=== PATIENT | female | born 1975 | race Caucasian/White ===

== ENCOUNTER 2020-02-23 01:44 | Emergency (ER) | payer OTHER, SELFPAY ==
[2020-02-23 01:44] VITALS: BP 150/88; PULSE 107; RESP 18; O2SAT 97
--- NOTE | 2020-02-23 01:51 | ED.GENADULT ---
HPI - General Adult General Chief complaint: Extremity Injury, Upper Stated complaint: arm pain Time Seen by Provider: 02/23/20 01:46 Source: patient Mode of arrival: EMS Limitations: no limitations History of Present Illness HPI narrative: Patient is a 44-year-old female brought in by EMS after complaining of bilateral hand tingling that started after being pulled over by the police. Patient admits to drinking 2-3 drinks tonight but that was hours ago . Patient states that she has a history of bulging cervical disc and she would occasionally get tingling of her hands. Patient denies any chest pain, shortness of breath, abdominal pain, nausea, vomiting, fever or chills. Patient denies any weakness, numbness, speech or visual disturbance. Patient states that she usually gets a shot of steroids and helps with her hand tingling. Related Data Home Medications Medication Instructions Recorded Confirmed No Home Medications 02/23/20 Allergies Allergy/AdvReac Type Severity Reaction Status Date / Time Penicillins Allergy Mild Hives Unverified 02/23/20 02:00 ampicillin Allergy Hives Verified 02/23/20 02:00 Review of Systems Review of Systems: All systems reviewed & are unremarkable except as noted in HPI and below Constitutional: Constitutional: Denies body ache(s), Denies chills, Denies excessive sweating, Denies fatigue, Denies fever(s), Denies headache(s), Denies lethargy, Denies malaise, Denies weakness and Denies weight loss Eyes: Eyes: Denies blurry vision, Denies change in vision and Denies loss of vision ENT: Denies dizziness, Denies ear discharge, Denies headache(s), Denies lip swelling, Denies epistaxis, Denies nasal congestion, Denies neck pain, Denies throat swelling and Denies tongue swelling Cardiovascular: Cardiovascular: Denies chest pain, Denies chest pain at rest, Denies chest pain with activity, Denies diaphoresis, Denies rapid heart rate, Denies edema, Denies irregular heart rhythm, Denies lightheadedness, Denies palpitations, Denies dyspnea and Denies dyspnea on exertion Respiratory: Respiratory: Denies chest congestion, Denies cough, Denies hemoptysis, Denies dyspnea and Denies dyspnea on exertion Gastrointestinal: Gastrointestinal: Denies abdominal pain, Denies melena, Denies hematochezia, Denies diarrhea, Denies nausea, Denies vomiting and Denies hematemesis Musculoskeletal: Musculoskeletal: Denies abnormal gait, Denies deformity, Denies joint swelling, Denies limited range of motion, Denies neck pain and Denies numbness Neurologic: Denies Abnormal speech present, Denies abnormal gait, Denies confusion, Denies dizziness, Denies headache(s), Denies focal weakness, Denies loss of vision, Denies numbness, Denies Other visual disturbances, Denies Sensory deficit (Neuro) and Denies weakness Psychiatric: Psychiatric: Denies confusion, Denies depression, Denies auditory hallucinations, Denies homicidal ideation and Denies suicidal ideation Endocrine: Endocrine: Denies cold intolerance, Denies excessive sweating, Denies fatigue, Denies heat intolerance and Denies palpitations Hematologic/Lymphatic: Hematologic/Lymphatic: Denies easy bleeding and Denies easy bruising Allergic/Immunologic: Allergic/Immunologic: Denies lip swelling, Denies throat swelling and Denies tongue swelling PMFSH Social History Social History Gender identity (if verbalized by the patient): Female Sexual Orientation (if Verbalized by the Patient): Straight or Heterosexual Exam Const: General: cooperative, healthy appearing, comfortable, no acute distress, well developed, alert and awake; No confusion Orientation/consciousness: oriented to person, oriented to place, oriented to time, patient oriented x3 and No confusion Limitations: no limitations HENMT: Head: normal to inspection, normocephalic and atraumatic Ears: hearing grossly normal bilaterally, TM normal on the right and TM normal on the left General nose exam: Normal exte
--- NOTE | 2020-02-23 01:53 | PC.NURSE ---
per ems report We were called out by the police department for someone they had pulled over. per the police office once pulled over they were told pt had severe arm and neck pain and burning. pt was at her friends house assisting with a tv being hung and was on her way home when stopped. Upon receiving ems report pt got agitated and verbalized that she did not appreciate insinuations being made about her. States I didnt have them call 911 because i was getting arrested. Pt did verbalized to erp dr simmons that she did have 3 sips of a twisted tea about 3 hours ago and that the can was still in her car.
[2020-02-23] MEDS: methylPREDNISolone SOD SUCC 125 MG VIAL 60 MG IM (02:12)
--- NOTE | 2020-02-23 02:27 | PC.NURSE ---
pt refusing to sign forms for treatment for registration. pt states i know that i don't have to sign them .
[2020-02-23 02:33] VITALS: BP 135/90; PULSE 97; RESP 18; O2SAT 97
== END 2020-02-23 02:47 | disposition home or self-care (01) ==
PROVIDERS: Emergency Provider Emergency Medicine; Referring Provider Internal Medicine
DX: M54.12 Radiculopathy, cervical region (principal)
CPT/HCPCS: 96372; 99283; J2930

== ENCOUNTER 2023-08-05 09:43 | Emergency (ER) | payer OTHER, SELFPAY ==
[2023-08-05 09:43] VITALS: BP 99/67; PULSE 73; RESP 20; TEMP 36.9; O2SAT 100
[2023-08-05 09:45] VITALS: BP 99/67; PULSE 101; RESP 18; TEMP 36.4; O2SAT 100
--- NOTE | 2023-08-05 09:48 | ED.SKABFB ---
HPI - Skin/Abscess/Foreign Bdy General Stated complaint: skin infection Time Seen by Provider: 08/05/23 09:47 History of Present Illness HPI narrative: Pt presents with abscess to upper back for 5 days. Pt says was unsure if spider bite. Pt denies fever or chills. Pt says tried to squeeze it but it hurt too bad. No known history of abscesses or MRSA infections. Related Data Allergies Allergy/AdvReac Type Severity Reaction Status Date / Time Penicillins Allergy Mild Hives Verified 02/23/20 02:11 ampicillin Allergy Hives Verified 02/23/20 02:00 Review of Systems Review of Systems: All systems reviewed & are unremarkable except as noted in HPI and below PMFSH Social History Social History Gender identity (if verbalized by the patient): Female Sexual Orientation (if Verbalized by the Patient): Straight or Heterosexual Exam Const: General: healthy appearing and no acute distress Nutritional Appearance: well nourished Orientation/consciousness: patient oriented x3 Limitations: no limitations Eyes: EOM: EOMs intact bilaterally Resp: Effort & Inspection: normal respiratory effort Auscultation: clear to auscultation bilaterally Cardio: Rate: regular rate Rhythm: regular rhythm Skin: Other: abscess upper back between shoulder blades Neuro: General: patient oriented x3, moves all extremities, no meningeal signs and no focal motor deficits Speech: normal speech Extrem: General: normal to inspection and no clubbing, cyanosis or edema Psych: Mental Status: mental status grossly normal Affect: Anxious affect present Attitude: cooperative Procedures Abscess I/D back: Date of Incision: 08/05/23 Time of Incision: 09:55 Local Anesthetic: lidocaine 1% Technique: incised with #11 blade Amount of fluid expressed (mL): 7 I&D Results: Pus and Blood Complications: pain and bleeding Abcess I&D Additional Comments: abscess incised with #11 blade, pus expressed but pt did not tolerate much squeezing or breaking up loculations with curved hemostats. Got out what I could. Gave ativan as well with some relief but did not tolerated much squeezing on abscess. MDM - Skin/Abscess/Foreign Bdy Differential Diagnosis Differential diagnosis: Likely abscess of skin or subcutaneous tissue and cellulitis Discharge Plan Discharge Clinical Impression: Abscess Patient Disposition: Home, Self-Care Condition: Improved Instructions: Antibiotic Form, Abscess (ED) Prescriptions: New sulfamethoxazole-trimethoprim [Bactrim DS] 800-160 mg tablet 2 tablet PO Q12H Qty: 40 0RF hydrocodone-acetaminophen 5-325 mg tablet 1 tablet PO Q6H PRN (Reason: pain) Qty: 10 0RF sulfamethoxazole-trimethoprim [Bactrim DS] 800-160 mg tablet 2 tablet PO Q12H Qty: 40 0RF hydrocodone-acetaminophen 5-325 mg tablet 1 tablet PO Q6H PRN (Reason: pain) Qty: 10 0RF No Action methylprednisolone [Medrol (Grady)] 4 mg tablets,dose pack See Rx Instructions .ROUTE .COMPLEX Qty: 21 0RF Rx Instructions: orally per package directions Follow-up/Referrals: Elgin Maza DO [Physician] - UNKNOWN,DOCTOR [Primary Care Provider] -
[2023-08-05] MEDS: LIDOCAINE HCL 1% LOCAL INJ 10 ML VIAL INFILTRATE (09:59)
[2023-08-05] MEDS: TETANUS,DIPHTHERIA,AC PERTUSSIS ADULT 0.5 ML (ADACEL) (09:59)
[2023-08-05] MEDS: LORazepam (*CRX) 1 MG TABLET PO (10:08)
[2023-08-05 10:30] VITALS: BP 138/84; PULSE 71; RESP 20; TEMP 36.9; O2SAT 97
== END 2023-08-05 10:30 | disposition home or self-care (01) ==
PROVIDERS: Emergency Provider Emergency Medicine
DX: L02.212 Cutaneous abscess of back [any part, except buttock and flank] (principal); Z23 Encounter for immunization
CPT/HCPCS: 10060; 90471; 90715; 99283; A9270

== ENCOUNTER 2023-08-16 19:53 | Emergency (ER) | payer OTHER, SELFPAY ==
[2023-08-16] VITALS (7 sets, daily range): BP systolic 118–140; BP diastolic 66–88; PULSE 78–91; RESP 16–18; TEMP 37–37.4; O2SAT 96–100
--- NOTE | ~2023-08-16 | XR_ITS ---
XR chest 2V Ordering provider: Conner Nice MD History: 48 years Female with . COUGH. FEVER. . Comparison: January 26, 2015 FINDINGS: MEDIASTINUM: The cardiac silhouette is not enlarged. LUNGS: No effusion or pneumothorax. Prominent markings in the lower lobes more on the left side. OTHER: No free air under the diaphragm. IMPRESSION: Prominent markings in the left lower lobe. No definite pneumonia seen. Reviewed, dictated and finalized at location A.
--- NOTE | 2023-08-16 20:00 | PC.NURSE ---
2000: Administered Covid PCR test & sent to lab
--- NOTE | 2023-08-16 20:05 | PC.NURSE ---
area that was lanced 1 week ago on her back is scabbed over. no redness or drainage noted. Denies pain to site
--- NOTE | 2023-08-16 20:17 | ED.FEVER ---
HPI - Fever General Chief Complaint: Fever Stated Complaint: lower abdominal pain Source: patient Mode of arrival: ambulatory Limitations: no limitations History of Present Illness HPI Narrative: patient is a 48-year-old female with a 1 day history of a cough, headache, abdominal pain and fever. She has associated muscle aches and pains. MD elicited complaint: fever and malaise Onset (ago): day(s) (1) Exacerbating factors: nothing Relieving factors: nothing Associated symptoms: chills, rigors, myalgias, headache and sinus pain ( Frontal bilateral) Treatments prior to arrival fever: none Related Data Allergies Allergy/AdvReac Type Severity Reaction Status Date / Time Penicillins Allergy Mild Hives Verified 02/23/20 02:11 ampicillin Allergy Hives Verified 02/23/20 02:00 Review of Systems Review of Systems: All systems reviewed & are unremarkable except as noted in HPI and below Constitutional: Constitutional: Reports no additional constitutional complaints Eyes: Eyes: Reports no additional eye complaints ENT: Reports system reviewed and no additional complaints, except as documented Cardiovascular: Cardiovascular: Reports no additional cardiovascular complaints Respiratory: Respiratory: Reports no additional respiratory complaints Gastrointestinal: Gastrointestinal: Reports no additional gastrointestinal complaints Genitourinary: Genitourinary: Reports no additional female genitourinary complaints Musculoskeletal: Musculoskeletal: Reports no additional musculoskeletal complaints Integumentary/Breasts: Skin/Breast: Reports system reviewed and no additional complaints, except as docu Neurologic: Reports system reviewed and no additional complaints, except as documented Psychiatric: Psychiatric: Reports no additional psychiatric complaints Endocrine: Endocrine: Reports no additional endocrine complaints Hematologic/Lymphatic: Hematologic/Lymphatic: Reports no additional hematologic/lymphatic complaints Allergic/Immunologic: Allergic/Immunologic: Reports no additional allergic/immunologic complaints PMFSH Social History Social History Gender identity (if verbalized by the patient): Female Sexual Orientation (if Verbalized by the Patient): Straight or Heterosexual Exam Const: General: ill appearing Nutritional Appearance: well nourished Orientation/consciousness: patient oriented x3 HENMT: Head: normal to inspection Ears: external ears normal Face/Nose/Sinus: Normal external nose present Eyes: Conjunctivae: conjunctivae normal Pupils: Equal, round and reactive pupils present EOM: EOMs intact bilaterally Neck: Neck: normal visual inspection Chest: Chest palpation & inspection: normal inspection of the chest Resp: Effort & Inspection: normal respiratory effort and not labored Auscultation: clear to auscultation bilaterally Cardio: Rate: regular rate Rhythm: regular rhythm Heart sounds: no murmurs GI: Inspection: non-distended GI Palp: Yes Soft to palpation and No Tenderness to palpation present (GI) Auscultation: normal bowel sounds : General: Yes bladder normal to palpation Back/Spine/Pelvis: Back: no CVA tenderness Skin: General skin exam: normal color Rashes: no rashes Wounds: no wounds Neuro: General: patient oriented x3 Cranial nerves: Yes Nystagmus not present Speech: normal speech Extrem: General: normal to inspection Psych: Appearance: grossly normal Mental Status: mental status grossly normal Affect: normal affect Course Vital Signs Vital signs: Vital Signs Temperature 37.0 C 08/16/23 19:54 Pulse Rate 91 08/16/23 19:54 Respiratory Rate 16 08/16/23 19:54 Blood Pressure 140/79 08/16/23 19:54 Pulse Oximetry 97 08/16/23 19:54 Oxygen Delivery Room Air 08/16/23 19:54 Temperature 37.4 C 08/16/23 22:14 Pulse Rate 80 08/16/23 21:23 Respiratory Rate 18 08/16/23 21:23 Blood Pre
[2023-08-16 20:37] LABS: SARS-CoV-2 RNA PCR Negative (Negative)
[2023-08-16 20:42] LABS: Influenza A QL RT-PCR Negative (Negative); Influenza B QL RT-PCR Negative (Negative); RSV RNA, RT-PCR Negative (Negative)
--- NOTE | 2023-08-16 20:47 | PC.NURSE ---
notified patient that covid/flu was negative. resting on stretcher. call light in reach
--- NOTE | 2023-08-16 21:22 | PC.NURSE ---
patient returned to room from xray
--- NOTE | 2023-08-16 21:22 | PC.NURSE ---
lab at the bedside
--- NOTE | 2023-08-16 21:25 | PC.NURSE ---
patient was given a urine and cup and told where the bathroom was. encouraged patient to go to bathroom and give sample.
--- NOTE | 2023-08-16 21:27 | PC.NURSE ---
patient ambulating to the bathroom
[2023-08-16 21:29] LABS: Basophils Absolute Auto 0.04 K/mm3 (0.00-0.10); Basophils Percent Auto 0.7 % (0.0-1.0); Eosinophils Absolute Auto 0.04 K/mm3 (0.02-0.50); Eosinophils Percent Auto 0.7 % (1.0-6.0); Hematocrit 45.3 % (35.0-49.0); Hemoglobin 15.1 g/dL (12.0-15.0); Immature Granulocyte Absolute 0.03 K/mm3 (0.00-0.00); Immature Granulocyte Percent A 0.5 % (0.0-0.0); Lymphocytes Absolute Auto 1.83 K/mm3 (1.10-4.50); Lymphocytes Percent Auto 31.3 % (18.0-42.0); Mean Corpuscular HGB Conc 33.3 g/dL (32-36); Mean Corpuscular Hemoglobin 29.7 pg (27.0-31.0); Mean Corpuscular Volume 89.2 fL (78.0-102.0); Mean Platelet Volume 9.1 fl (9.2-11.8); Monocytes Absolute Auto 0.46 K/mm3 (0.10-0.90); Monocytes Percent Auto 7.9 % (2.0-11.0); Neutrophils Absolute Auto 3.44 K/mm3 (1.70-7.20); Neutrophils Percent Auto 58.9 % (50.0-70.0); Platelet Count Result 268 K/mm3 (150-420); Red Blood Count 5.08 M/mm3 (4.20-5.40); Red Cell Distribution Width 12.2 % (11.6-14.4); White Blood Count 5.8 K/mm3 (4.8-10.8)
--- NOTE | 2023-08-16 21:33 | PC.NURSE ---
urine walked down to lab by Kandace villeda
[2023-08-16 21:35] LABS: Appearance Urine Clear (Clear); Bilirubin Urine Negative (Negative); Blood Urine Trace-intact (Negative); Color Urine Yellow (Yellow); Glucose Urine UA Negative (Negative); Ketones Urine Negative (Negative); Leukocyte Esterase Ur Negative LEU/UL (Negative); Nitrate Urine Negative (Negative); Protein Urine Negative (Negative); pH Urine 7.5 (5.0-8.0)
[2023-08-16 21:40] LABS: Add Urine Microscopic? YES; Bacteria Urine Trace /hpf; RBC Urine 0-2 /hpf (0-2); Squamous Epithelial Cell Urine Few /hpf (Few); WBC Urine None seen /hpf (0-3)
[2023-08-16 21:43] LABS: Alanine Aminotransferase 46 U/L (14-59); Albumin Level 3.1 g/dL (3.4-5.0); Alkaline Phosphatase 124 U/L (46-116); Anion Gap 5 mmol/L (4-12); Aspartate Amino Transferase 29 U/L (15-37); Bilirubin,Total 0.2 mg/dL (0.00-1.00); Blood Urea Nitrogen 10 mg/dL (7-18); Calcium 8.2 mg/dL (8.5-10.1); Carbon Dioxide 29 mmol/L (21-32); Chloride 100 mmol/L (98-108); Estimated CRCL calculation 79 ml/min; Estimated Glomerular Filt Rate > 60; Glucose 98 mg/dL (70-99); Lipase 33 U/L (16-77); Osmolality Calculated 277 mOsm/kg (285-295); Potassium 3.9 mmol/L (3.5-5.1); Sodium 134 mmol/L (136-145); Total Protein 7.3 g/dL (6.4-8.2)
[2023-08-16 21:46] LABS: Lactic Acid Reflex 0.6 mmol/L (0.4-2.0)
--- NOTE | 2023-08-16 22:15 | PC.NURSE ---
resting on stretcher. brother at the bedside. call light in reach
[2023-08-16] MEDS: IBUPROFEN 600 MG TABLET PO (22:25)
[2023-08-16] MEDS: levoFLOXacin 500 MG TABLET PO (22:25)
== END 2023-08-16 22:36 | disposition home or self-care (01) ==
PROVIDERS: Emergency Provider Emergency Medicine
DX: J18.9 Pneumonia, unspecified organism (principal); Z20.822 Contact with and (suspected) exposure to COVID-19
CPT/HCPCS: 36415; 71046; 80053; 81001; 83605; 83690; 85025; 87637; 99283; A9270

== ENCOUNTER 2024-10-03 11:43 | Emergency (ER) | payer SELFPAY ==
--- OUTSIDE RECORDS SUMMARY | 2024-10-03 11:46 | XMS_ITS | Clinical Summary ---
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 None, Provider MD Primary Care Provider Unavaila ble Allergies Active Allergy Reactions Criticality Noted Date Comments Influenza Virus Vaccine Other (see comment) High 11/2024 Auto immune response Penicillins Shortness of Breath,Rash High 12/02/2019 Medications No known medications Active Problems Problem Noted Date Diagnosed Date Bowel obstruction ([facility]) 07/28/2024 Rectal abnormality 07/28/2024 S/P laparoscopic appendectomy 12/03/2019 Encounters Date Type Department Care Team Description 08/23/2024 7:50 PM CDT - 08/24/2024 12:28 AM CDT Emergency [facility] Emergency Services [address] [place] [address] John Stevenson MD Medical Problem Discharge Disposition: Left Against Medical Advice 08/23/2024 Travel 07/28/2024 1:33 AM CDT - 07/28/2024 6:12 PM CDT Hospital Encounter [facility] Med/Surg 3rd [place] [address] Dalia Lozano, Denis Unger MD Discharge Disposition: Left Against Medical Advice 07/27/2024 6:31 PM CDT - 07/27/2024 10:37 PM CDT Emergency [facility] Emergency Room [address] [place] [id number] Radhames Sales MD Abdominal Pain Discharge Disposition: Transfer to Acute Care Hospital 07/27/2024 Travel from Last 3 Months Family History Medical History Relation Comments Alcohol Abuse Mother Cancer Mother Diabetes Mother Heart Disease Mother Relation Status Comments Mother Social History Tobacco Use Types Packs/Day Years Used Date Smoking Tobacco: Every Day Cigarettes 1 30 Tobacco Cessation:Ready to Q uit: Not Asked; Counseling Given: Not Answered Alcohol Use Standard Drinks/Week Comments Yes 0 (1 standard drink = 0.6 oz pur e alcohol) rarely B1300 Health Literacy Answer Date Recor ded How often do you need to hav e someone help you when you read instructions, pamphlets, or other written material from your doctor or pharmacy? Never 07/28/2024 [facility] Utilities Answer Date Recorded In the past 12 months has e [facility] gas, oil, or water ISH threatened to shut off services in your home? No 07/28/2024 Humiliation, Afraid, Rape, and Kick questionnair e Answer Date Recorded Within the last year, have y ou been afraid of your partner or ex-partner? No 07/28/2024 Within the last year, have y ou been humiliated or emotionally abused in other ways by your partner or ex-partner? No Within the last year, have y ou been kicked, hit, slapped, or otherwise physically hurt by your partner or ex-partner? No 07/28/2024 Within the last year, have y ou been raped or forced to have any kind of sexual activity by your partner or ex-partner? No 07/28/2024 Social Connection and Isolat ion Panel [NHANES] Answer Date Recorded In a typical week, how many times do you talk on the phone with family, friends, or neighbors? More than three times a week 07/28/2024 How often do you get togethe r with friends or relatives? More than three times a week 07/28/2024 How often do you attend chur ch or jewish services? Never 07/28/2024 Do you belong to any clubs o r organizations such as congregational groups, unions, fraternal or athletic groups, or school groups? No 07/28/2024 How often do you attend meet ings of the clubs or organizations you belong to? Never 07/28/2024 Are you , , di vorced, , never , or living with a partner? 07/28/2024 AUDIT-C Answer Date Recorded Q1: How often do you have a drink containing alcohol? Never 07/28/2024 Q2: How many drinks containi ng alcohol do you have on a typical day when you are drinking? Patient does not drink Q3: How often do you have si x or more drinks on one occasion? Never 07/28/2024 Overall Financial Resource Strain (CARDIA) Answe r Date Recorded How hard is it for you to pa y for the very basics like food, housing, medical care, and heating? Somewhat hard 07/28/2024 [facility] of Occupat ional Health - Occupational Stress Questionnaire Answer Date Recorded Do you feel stress - tense, restless, nervous, or anxious, or unable to sleep at night because your mind is troubled all the time - these days? Rather much 07/28/2024 Hunger Vital Sign Answer Date Recorded Within the past 12 months, y ou worried that your food would run out before you got the money to buy more. Sometimes true Within the past 12 months, t he food you bought just didn't last and you didn't have money to get more. Sometimes true 11/2024 PRAPARE - Transportation Answer Date Re corded In the past 12 months, has l ack of transportation kept you from medical appointments or from getting medications? No 07/19 In the past 12 months, has l ack of transportation kept you from meetings, work, or from getting things needed for daily living? No 07/28/2024 Housing Stability Vital Sign Answer Hill e Recorded In the last 12 months, was t here a time when you were not able to pay the mortgage or rent on time? No 07/28/2024 In the past 12 months, how m any times have you moved where you were living? 0 07/28/2024 At any time in the past 12 m [facility], were you homeless or living in a halfway (including now)? 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 Female 9:43 AM CDT Gender Identity Not on file Sexual Orientation Not on file Last Filed Vital Signs Vital Sign Reading Time Taken Comments Blood Pressure 125/80 08/24/2024 12:00 AM CDT Pulse 97 08/24/2024 12:00 AM CDT Temperature 36.1 C (97 F) 08/24/2024 12:00 AM CDT Respiratory Rate 12 08/23/2024 10:1 5 PM CDT Oxygen Saturation 96% 08/24/2024 12: 00 AM CDT Inhaled Oxygen Concentration - - Weight 91.1 kg (200 lb 13.4 oz) 08/23/2024 7:55 PM CDT Height 172.7 cm (5' 8) 08/23/2024 7:55 PM CDT Body Mass Index 30.54 08/23/2024 7:55 PM CDT Plan of Treatment Health Maintenance Due Date Last Done Comments Cervical Cancer Screening Pa p Smear (Age 30 to 64) Every 3 Years 1973 Colorectal Cancer Screening Colonoscopy (10 Years) 1973 Annual Physical 1976 Hepatitis C 06/07/1991 Hepatitis B Vaccines (1 of 3 - 19+ 3-dose series) 1992 Pneumococcal Vaccine: 50+ Ye ars (1 of 2 - PCV) 1992 Cervical Cancer Screening Pa p with HPV Testing (Age 30 to 64) Every 5 Years 06/07/2003 Cervical Cancer Screening with HPV 06/07/2003 Mammogram Screening 2013 Lung Cancer Screening 06/07/2023 Zoster Vaccines (1 of 2) 06/07/2023 COVID-19 Vaccine ( - 2023-2 5 season) 2023 DTaP, Tdap and Td Vaccines ( 2 - Td or Tdap) 08/04/2033 08/05/2023 Meningococcal B Vaccine Aged Out No l onger eligible based on patient's age to complete this topic Meningococcal Vaccine Aged Out No skyler doroteo eligible based on patient's age to complete this topic RSV Immunizations Under 20 Months Aged Out No longer eligible based on patient's age to complete this topic Goals Goal Patient Goal Type Associated Problems Recent Progress Patient-Stated? Author Family - family caregiver with be involved in care transitions and discharge planning Lifestyle No Annika Blackmon, TOBACCO FLAVORER Interventions Community Resource Recommendations Community Resource Services Recommended Domains Addressed Status Status Reason/Outcome Date/Time [facility] Food Pantry Food Insecurity Services Food Insecurity Recommended 09/07/2024 2:45 PM CDT [facility] Financial Assistance Financial Resource Strain Recommended 09/07/2024 2:45 PM CDT [facility] Financial Resource Strain Recommended 09/07/2024 2:45 PM CDT [facility] Financial Assistance Financial Resource Strain Recommended 09/07/2024 2:45 PM CDT from Last 12 Months Procedures Procedure Name Priority Date/Time Associated Diagnosis Comments URINALYSIS MICRO ONLY Routine 08/23/2024 9:11 PM CDT URINALYSIS AUTO DIP STAT 08/23/2024 9 :[address] ABD+PEL W CON STAT 08/23/2024 8:31 PM CDT WBC WI DIFFERENTIAL TIMED 08/23/2024 8 :11 PM CDT COMPREHENSIVE METABOLIC PANEL STAT 08/23/2024 8:11 PM CDT CBC W/DIFF AUTOMATED STAT 08/23/2024 8:11 PM CDT COLONOSCOPY Routine 07/28/2024 4:10 PM CDT DRUG SCREEN RAPID Routine 07/28/2024 9:5 0 AM CDT PARTIAL THROMBOPLASTIN TIME,PTT STAT 07/28/2024 9:08 AM CDT PROTHROMBIN TIME, VENOUS STAT 025 9:08 AM CDT CARCINOEMBRYONIC ANTIGEN Routine 025 7:09 AM CDT CBC W/DIFF AUTOMATED Routine 07/28/2024 7:09 AM CDT BASIC METABOLIC PANEL Routine 07/28/2024 7:[address] ABD+PEL W CON STAT 07/27/2024 7:50 PM CDT TEST URINE STAT 07/27/2024 7:16 PM CDT URINALYSIS, AUTO, COMPLETE STAT 07/27/2024 7:16 PM CDT LIPASE STAT 07/27/2024 6:15 PM CDT COMPREHENSIVE METABOLIC PANEL STAT 07/27/2024 6:15 PM CDT CBC W/DIFF AUTOMATED STAT 07/27/2024 6:15 PM CDT from Last 3 Months Results * (ABNORMAL) URINALYSIS AUTO DIP (08/23/2024 9:11 PM CDT) COLOR (U) LIGHT YELLOW(A) YELLOW 08/23/2024 9:49 PM CDT [facility] TRANSPARENCY SLIGHTLY CLOUDY(A) CLEAR 08/23/2024 9:49 PM CDT [facility] SPECIFIC GRAVITY (U) ABOVE MEASUREMENT RANGE, UNABLE TO CALCULATE 1.010 - 1.025 08/23/2024 9:49 PM CDT [facility] U PH 6.0 5.0 - 8.5 08/23/2024 9:49 PM CDT [facility] LEUKOCYTES (U) NEGATIVE NEGATIVE 08/23/2024 9:49 PM CDT [facility] NITRITES 2(A) NEGATIVE 08/23/2024 9:49 PM CDT [facility] PROTEIN RANDOM (U) NEGATIVE NEGATIVE 08/23/2024 9:49 PM CDT [facility] GLUCOSE (U) NEGATIVE NEGATIVE 08/23/2024 9:49 PM CDT [facility] KETONES MG/DL (U) NEGATIVE NEGATIVE 08/23/2024 9:49 PM CDT [facility] UROBILINOGEN 0.2 0.2 - 1.0 EU/DL 08/23/2024 9:49 PM CDT [facility] BILIRUBIN (U) NEGATIVE NEGATIVE 08/23/2024 9:49 PM CDT [facility] BLOOD (U) SMALL(A) NEGATIVE 08/23/2024 9:49 PM CDT [facility] URINE SPECIMEN OBTAINED BY CLEAN CATCH PROCEDURE / Unknown 08/23/2024 9:11 PM CDT John Stevenson MD URINE ORDERABLES Final Resu lt [facility] [address] [place] [address], [place] * (ABNORMAL) URINALYSIS MICRO ONLY (08/23/2024 9:11 PM CDT) WBC/HPF 12(H) <6 /HPF 08/24/2024 1:43 PM CDT [facility] RBC/HPF 9(H) <6 /HPF 08/24/2024 1:43 PM CDT [facility] MUCUS RARE /LPF 08/24/2024 1:43 PM CDT [facility] SQUAMOUS EPITHELIALS FEW /HPF 08/24/2024 1:43 PM CDT [facility] 08/23/2024 9:11 PM CDT John Stevenson MD URINE ORDERABLES Final Resu lt [facility] [address] [place] [address], [place] [phone] * CT ABD+PEL W IV CON ONLY (08/23/2024 8:31 PM CDT) Only the most recent of2 resultswithin the time period is included. Anatomical Region Laterality Modality Abdomen Computed Tomogra phy 08/23/2024 9:15 PM CDT Impressions 08/23/2024 9:42 PM CDT IMPRESSION: 1. Progression of irregular wall thickening and hyperenhancement in the rectum suspicious for primary neoplasm of the rectum. 2. Slight further enlargement of suspicious enhancing perirectal lymph nodes since 07/27/2024, largest currently 10 mm and previously 8 mm. 3. Mild interval enlargement of numerous heterogeneously enhancing liver lesions since 07/27/2024, consistent with liver metastasis. 4. Heavy stool in the colon suggesting constipation. 5. Stable small hiatal hernia. 6. Stable T-shaped intrauterine device in the uterus. 7. Degenerative changes in the lower thoracic and lumbar spine with mild central canal stenosis at L4-5. Referred By: Interpreted By: Qian Field MD, 08/23/2024 9:15 PM Narrative 08/23/2024 9:[address] PM [address]T [address] [place] [address] EXAMINATION: CT Abdomen and Pelvis with intravenous contrast, axial images with 2D coronal and sagittal reconstruction. 95 mL Isovue 370 was administered intravenously. This CT exam was performed using one or more of the following dose reduction techniques: automated exposure control, adjustment of the mA and/or kV according to patient size, the use of iterative reconstruction technique, use of ALARA (As Low As Reasonably Achievable) and/or use of Image Gently techniques. INDICATION: Lower abdominal pain COMPARISON: CT abdomen and pelvis with contrast 07/27/2024. FINDINGS: The included lower lungs are clear. No pleural or pericardial effusions. Heart size is normal. Mild interval enlargement of numerous heterogeneously enhancing liver lesions since 2024, consistent with liver metastasis, with the largest again in the dome of the left lobe of liver measuring approximately 5 x 5.4 x 7 cm currently as compared to 3.8 x 4.6 x 6.7 cm previously. The lesions all likely represent metastasis. A small 1.8 x 2.2 cm lesion in the posterior dome of right lobe of liver and a 3.7 x 3.3 cm lesion in the inferior right lobe of liver demonstrate somewhat greater enhancement than the other lesions. Mild cystic change in the larger lesions may be related to cystic or necrotic degeneration. Liver is normal in size. Gallbladder, pancreas, spleen, and bilateral adrenal glands are unremarkable. Stable small 2 cm cyst near the corticomedullary junction in the upper right kidney, for which no follow-up imaging is recommended. Kidneys are otherwise unremarkable with no obstructing calculi or hydronephrosis. Bladder is unremarkable. T-shaped intrauterine device in the uterus appears grossly stable. No suspicious adnexal mass and no free fluid in the cul-de-sac. Stable small hiatal hernia. Limited evaluation of stomach wall thickening due to nondistention. Postsurgical densities in the right upper quadrant may be from prior appendectomy, with the appendix is not visualized. Heavy stool in the colon suggesting constipation. Progression of irregular wall thickening and hyperenhancement in the rectum on axial images 99-1 13 suspicious for primary neoplasm of the rectum. No high-grade bowel obstruction. Tiny miniscule fat-containing ventral periumbilical hernia of doubtful significance. No ascites. Minimal further enlargement of mildly prominent suspicious enhancing perirectal lymph nodes since 07/27/2024 with the largest posterolateral to the rectum to the left of midline currently measuring 10 mm and previously 8 mm. No other adenopathy is seen. Aorta is age-appropriate without aneurysm. Degenerative loss of disc height at L4-5 with mild endplate spondylosis at multiple levels in the lower thoracic and lumbar spine with no acute osseous abnormality. Mild central canal stenosis at L4-5. Procedure Note Qian Field MD - 08/23/[address] [place] [address] EXAMINATION: CT Abdomen and Pelvis with intravenous contrast, axial imageswith 2D coronal and sagittal reconstruction. 95 mL Isovue [address]. [address] exam was performed using one or more of the following dosereduction techniques: automated exposure control, adjustment of the mAand/or kV according to patient size, the use of iterative reconstructiontechnique, use of ALARA (As Low As Reasonably Achievable) and/or use ofImage Gently techniques. INDICATION: Lower abdominal pain COMPARISON: CT abdomen and pelvis with contrast 07/27/2024. FINDINGS: The included lower lungs are clear. No pleural or pericardialeffusions. Heart size is normal. Mild interval enlargement of numerousheterogeneously enhancing liver lesions since dialysis line 2024,consistent with liver metastasis, with the largest again in the dome ofthe left lobe of liver measuring approximately 5 x 5.4 x 7 cm currently ascompared to 3.8 x 4.6 x 6.7 cm previously. The lesions all likelyrepresent metastasis. A small 1.8 x 2.2 cm lesion in the posterior domeof right lobe of liver and a 3.7 x 3.3 cm lesion in the inferior rightlobe of liver demonstrate somewhat greater enhancement than the otherlesions. Mild cystic change in the larger lesions may be related tocystic or necrotic degeneration. Liver is normal in size. Gallbladder,pancreas, spleen, and bilateral adrenal glands are unremarkable. Stablesmall 2 cm cyst near the corticomedullary junction in the upper rightkidney, for which no follow-up imaging is recommended. Kidneys areotherwise unremarkable with no obstructing calculi or hydronephrosis.Bladder is unremarkable. T-shaped intrauterine device in the uterusappears grossly stable. No suspicious adnexal mass and no free fluid inthe cul-de-sac. Stable small hiatal hernia. Limited evaluation of stomach wall thickeningdue to nondistention. Postsurgical densities in the right upper quadrantmay be from prior appendectomy, with the appendix is not visualized.Heavy stool in the colon suggesting constipation. Progression ofirregular wall thickening and hyperenhancement in the rectum on axialimages 99-1 13 suspicious for primary neoplasm of the rectum. Nohigh-grade bowel obstruction. Tiny miniscule fat-containing ventralperiumbilical hernia of doubtful significance. No ascites. Minimalfurther enlargement of mildly prominent suspicious enhancing perirectallymph nodes since 07/27/2024 with the largest posterolateral to the rectumto the left of midline currently measuring 10 mm and previously 8 mm. Noother adenopathy is seen. Aorta is age-appropriate without aneurysm.Degenerative loss of disc height at L4-5 with mild endplate spondylosis atmultiple levels in the lower thoracic and lumbar spine with no acuteosseous abnormality. Mild central canal stenosis at L4-5. IMPRESSION: 1. Progression of irregular wall thickening and hyperenhancement in therectum suspicious for primary neoplasm of the rectum. 2. Slight further enlargement of suspicious enhancing perirectal lymphnodes since 07/27/2024, largest currently 10 mm and previously 8 mm. 3. Mild interval enlargement of numerous heterogeneously enhancing liverlesions since 07/27/2024, consistent with liver metastasis. 4. Heavy stool in the colon suggesting constipation. 5. Stable small hiatal hernia. 6. Stable T-shaped intrauterine device in the uterus. 7. Degenerative changes in the lower thoracic and lumbar spine with mildcentral canal stenosis at L4-5. Referred By: Interpreted By: Qian Field MD, 08/23/2024 9:15 PM us John Stevenson MD CT Final Resul t * (ABNORMAL) WBC WI DIFFERENTIAL (08/23/2024 8:11 PM CDT) WBC 12.07(H) 4.50 - 11.00 x10'3/uL 08/23/2024 8:29 PM CDT [facility] SEG NEUTROPHILS 35 % 10:27 AM CDT [facility] LYMPHOCYTES 52 % 08/24/2024 10:27 AM CDT [facility] MONOCYTES 9 % 08/24/2024 10:27 AM CDT [facility] EOSINOPHILS 4 % 08/24/2024 10:27 AM CDT [facility] ABS. NEUTROPHILS 4.22 1.80 - 7.70 x10'3/uL 08/24/2024 10:27 AM CDT [facility] ABS. LYMPHOCYTES 6.28(H) 1.00 - 4.80 x10'3/uL 08/24/2024 10:27 AM CDT [facility] ABS. MONOCYTES 1.09(H) 0.24 - 0.86 x10'3/uL 08/24/2024 10:27 AM CDT [facility] ABS. EOSINOPHILS 0.48(H) 0.04 - 0.36 x10'3/uL 08/24/2024 10:27 AM CDT [facility] DIFFERENTIAL TYPE MANUAL DIFFERENTIAL 08/24/2024 10:27 AM CDT [facility] RBC MORPHOLOGY RBC MORPHOLOGY APPEARS NORMAL. SLIDE REVIEWED. 08/24/2024 10:27 AM CDT [facility] PLT EST. ADEQUATE 08/24/2024 10:27 AM CDT [facility] 08/23/2024 8:11 PM CDT us John Stevenson MD LABORATORY Final Resul t [facility] [address] [place] [address], [facility] [address] [place] [address] [place] [address], [place] * (ABNORMAL) COMPREHENSIVE METABOLIC PANEL (08/23/2024 8:11 PM CDT) Only the most recent of2 resultswithin the time period is included. GLUCOSE 110(H) 70 - 99 MG/DL 08/23/2024 8:34 PM CDT [facility] BUN 14 7 - 18 MG/DL 08/23/2024 8:34 PM CDT [facility] CREATININE S/P/B 0.86 0.50 - 1.20 MG/DL 08/23/2024 8:34 PM CDT [facility] SODIUM S/P/B 138 136 - 145 MMOL/L 08/23/2024 8:34 PM CDT [facility] POTASSIUM S/P/B 3.9 3.5 - 5.1 MMOL/L 08/23/2024 8:34 PM CDT [facility] CHLORIDE S/P/B 103 100 - 108 MMOL/L 08/23/2024 8:34 PM CDT [facility] CO2 27.6 21.0 - 32.0 MMOL/L 08/23/2024 8:34 PM CDT [facility] CALCIUM S/P/B 8.6 8.5 - 10.1 MG/DL 08/23/2024 8:34 PM CDT [facility] BILIRUBIN TOTAL S/P/B 0.6 0.2 - 1.2 MG/DL 08/23/2024 8:34 PM CDT [facility] Comment: THIS ASSAY IS NOT RECOMMENDED FOR PATIENTS UNDERGOING TREATMENT WITH ELTROMBOPAG DUE TO THE POTENTIAL FOR FALSELY ELEVATED RESULTS. TOTAL PROTEIN S/P/B 6.9 6.4 - 8.2 G/DL 08/23/2024 8:34 PM CDT [facility] ALBUMIN S/P/B 3.3(L) 3.4 - 5.0 G/DL 08/23/2024 8:34 PM CDT [facility] AST 19 15 - 37 U/L 08/23/2024 8:34 PM CDT [facility] ALT 23 14 - 55 U/L 08/23/2024 8:34 PM CDT [facility] ALKALINE PHOSPHATASE S/P/B 129 50 - 136 U/L 08/23/2024 8:34 PM CDT [facility] ANION GAP 7.4 5.0 - 15.0 MMOL/L 08/23/2024 8:34 PM CDT [facility] BUN CREATININE RATIO 16.3 6 - 26 08/23/2024 8:34 PM T [facility] A/G RATIO 0.9(L) 1.0 - 2.5 RATIO 08/23/2024 8:34 PM T [facility] GFR ESTIMATE 82(L) >90 ML/MIN/1.7 3 M2 08/23/2024 8:34 PM T [facility] Comment: NOTE: eGFR is not calculated for patients <18 years of age. This is an estimated GFR calculation using the new CKD EPI creatinine equation without race and so does not require a correction factor for race. This estimated GFR should not be used for calculating drug doses. 08/23/2024 8:11 PM CDT us John Stevenson MD LABORATORY Final Resul t [facility] [address] [facility] [address], * (ABNORMAL) CBC W/DIFF AUTOMATED (08/23/2024 8:11 PM CDT) Only the most recent of3 resultswithin the time period is included. WBC 12.07(H) 4.50 - 11.00 x10'3/uL 08/23/2024 8:26 PM CDT [facility] RBC 4.64 4.00 - 5.20 x10'6/uL 08/23/2024 8:26 PM CDT [facility] HGB 13.7 12.0 - 16.0 G/DL 08/23/2024 8:26 PM CDT [facility] HCT 41.2 38.0 - 48.0 % 08/23/2024 8:26 PM CDT [facility] MCV 88.8 80.0 - 100.0 FL 08/23/2024 8:26 PM CDT [facility] MCH 29.5 26.0 - 34.0 PG 08/23/2024 8:26 PM CDT [facility] MCHC 33.3 31.0 - 37.0 G/DL 08/23/2024 8:26 PM CDT [facility] RDW 12.8 11.6 - 14.8 % 08/23/2024 8:26 PM CDT [facility] PLT 242 130 - 400 x10'3/uL 08/23/2024 8:26 PM CDT [facility] MPV 10.4 7.0 - 12.0 FL 08/23/2024 8:26 PM CDT [facility] CBC COMMENT MANUAL DIFFERENTIAL AND RBC/PLT MORPHOLOGY TO FOLLOW. 08/23/2024 8:26 PM CDT [facility] 08/23/2024 8:11 PM CDT us John Stevenson MD LABORATORY Final Resul t [facility] [address] [place] [address], [place] * (ABNORMAL) DRUG SCREEN RAPID (07/28/2024 9:50 AM CDT) Pathologist [facility] AMPHETAMINE (U) POSITIVE(A) NEGATIVE 07/29/19 10:24 AM CDT [facility] BARBITURATES SCREEN (U) NEGATIVE NEGATIVE 07/28/2024 10:24 AM CDT [facility] BENZODIAZEPINES SCREEN (U) NEGATIVE NEGATIVE 07/28/2024 10:24 AM CDT [facility] CANNABINOIDS SCREEN (U) POSITIVE(A) NEGATIVE 07/28/2024 10:24 AM CDT [facility] COCAINE METABOLITES (U) NEGATIVE NEGATIVE 07/28/2024 10:24 AM CDT [facility] METHADONE (U) NEGATIVE NEGATIVE 07/28/2024 10:24 AM CDT [facility] OPIATE SCREEN (U) POSITIVE(A) NEGATIVE 2024 10:24 AM CDT [facility] PHENCYCLIDINE PCP (U) NEGATIVE NEGATIVE 07/28/2024 10:24 AM CDT [facility] Comment: NOTE: RESULTS OF THIS DRUG SCREEN SHOULD BE USED FOR MEDICAL PURPOSES ONLY AND NOT FOR LEGAL OR EMPLOYMENT PURPOSES. POSITIVE RESULTS ARE NOT CONFIRMED. MEDICATIONS CONTAINING EPHEDRINE MAY CAUSE FALSE POSITIVE AMPHETAMINE CALL [phone], LAB, TO REQUEST CONFIRMATION TESTING. IF CREATININE IS <40 mg/dL. RECOLLECTION IS SUGGESTED. AMPHETAMINE- 500 NG/ML BARBITURATE- 200 NG/ML BENZODIAZEPINES- 200 NG/ML THC- 50 NG/ML COCAINE- 150 NG/ML METHADONE- 300 NG/ML OPIATE- 300 MG/ML PCP- 25 NG/ML CREATININE (U) 161.0 28 - 217 MG/DL 07/28/2024 10:24 AM CDT [facility] URINE SPECIMEN / Unknown 07/28/2024 9:50 AM CDT Dalia Lozano DO URINE ORDERABLES Final Resul t [facility] [address] [place] [id number], * PARTIAL THROMBOPLASTIN TIME,PTT (07/28/2024 9:08 AM CDT) PTT 32.6 25.1 - 36.5 SEC 07/28/2024 10:19 AM CDT [facility] 07/28/2024 9:08 AM CDT Jaylyn Byrne MD LABORATORY Final Result Performing Organization Address City/[facility] Co de Phone Number [facility] [address] [place] [address], [place] [phone] * PROTIME/INR, VENOUS (07/28/2024 9:08 AM CDT) PROTIME 11.2 10.2 - 12.9 SEC 07/28/2024 10:19 AM CDT [facility] INR 1.0 07/28/2024 10:19 AM CDT [facility] Comment: Recommended INR Therapeutic Goals: 2.0-3.0 Routine Therapy 2.5-3.5 Mechanical Prosthetic Valves (High Risk) 07/28/2024 9:08 AM CDT us Jaylyn Byrne MD LABORATORY Final Result [facility] [address] [place] [address], [place] [phone] * (ABNORMAL) BASIC METABOLIC PANEL (07/28/2024 7:09 AM CDT) [facility] GLUCOSE 102(H) 70 - 99 MG/DL 07/28/2024 8:13 AM CDT [facility] BUN 11 7 - 18 MG/DL 07/28/2024 8:13 AM CDT [facility] CREATININE S/P/B 0.86 0.55 - 1.02 MG/DL 07/28/2024 8:13 AM CDT [facility] SODIUM S/P/B 140 136 - 145 MMOL/L 07/28/2024 8:13 AM CDT [facility] POTASSIUM S/P/B 4.0 3.5 - 5.1 MMOL/L 07/28/2024 8:13 AM CDT [facility] CHLORIDE S/P/B 109 97 - 115 MMOL/L 07/28/2024 8:13 AM CDT [facility] CO2 27.5 21 - 32 MMOL/L 07/28/2024 8:13 AM CDT [facility] CALCIUM S/P/B 8.9 8.5 - 10.1 MG/DL 07/28/2024 8:13 AM CDT [facility] ANION GAP 3.5 2 - 10 MMOL/L 07/28/2024 8:13 AM CDT [facility] BUN CREATININE RATIO 12.8 6 - 26 07/28/2024 8:13 AM T [facility] GFR ESTIMATE 82(L) >90 ML/MIN/1.7 3 M2 07/28/2024 8:13 AM CDT [facility] Comment: NOTE: eGFR is not calculated for patients <18 years of age or gender unknown. This is an estimated GFR calculation using the new CKD EPI creatinine equation without race and so does not require a correction factor for race. This estimated GFR should not be used for calculating drug doses. 07/28/2024 7:09 AM CDT Dalia Lozano DO LABORATORY Final Result Performing Organization Address City/[facility]/ZIP Co de Phone Number [facility] [address] [place] [address], [place] [phone] * CARCINOEMBRYONIC ANTIGEN (07/28/2024 7:09 AM CDT) [facility] CEA 2.8 0.0 - 3.0 NG/ML 07/28/2024 11:09 AM CDT [facility] Comment: Test was performed using the Siemens method. Results obtained with other assay methods or kits cannot be used interchangeably with results obtained by the Siemens method. 07/28/2024 7:09 AM CDT Dalia Lozano DO LABORATORY Final Result Performing Organization Address [facility] Co de Phone Number [facility] [address] [place] [address], [place] [phone] * TEST URINE (07/27/2024 7:16 PM CDT) Pathologist [facility] URINE HCG TEST NEGATIVE NEGATIVE 07/27/2024 7:32 PM CDT [facility] Comment: VERY DILUTE URINE SPECIMENS MAY NOT CONTAIN BACON SKINNER LEVELS OF HCG. IF IS STILL SUSPECTED, A SERUM HCG TEST IS RECOMMENDED. URINE SPECIMEN FROM URETHRA / Unknown 07/27/2024 7:16 PM CDT Radhames Sales MD URINE ORDERABLES Final Result Performing Organization Address City/[facility] Co de Phone Number [facility] [address] [place] [address], [place] [phone] * (ABNORMAL) Urinalysis, Auto, Complete (07/27/2024 7:16 PM CDT) COLOR (U) YELLOW 07/27/2024 7:35 PM CDT [facility] TRANSPARENCY CLEAR 07/27/2024 7:35 PM CDT [facility] SPECIFIC GRAVITY (U) >1.030(H) 1.000 - 1.030 07/27/2024 7:35 PM CDT [facility] U PH 5.5 5.0 - 9.0 07/27/2024 7:35 PM CDT [facility] LEUKOCYTES (U) NEGATIVE NEGATIVE 07/27/2024 7:35 PM CDT [facility] NITRITES NEGATIVE NEGATIVE 07/27/2024 7:35 PM CDT [facility] PROTEIN RANDOM (U) NEGATIVE NEGATIVE 07/27/2024 7:35 PM CDT [facility] GLUCOSE (U) NEGATIVE NEGATIVE 07/27/2024 7:35 PM CDT [facility] KETONES MG/DL (U) NEGATIVE NEGATIVE 07/27/2024 7:35 PM CDT [facility] BILIRUBIN (U) NEGATIVE NEGATIVE 07/27/2024 7:35 PM CDT [facility] BLOOD (U) TRACE(A) NEGATIVE 07/27/2024 7:35 PM CDT [facility] WBC/HPF NONE SEEN 0 - 5 /HPF 07/27/2024 7:35 PM CDT [facility] RBC/HPF NONE SEEN 0 - 5 /HPF 07/27/2024 7:35 PM CDT [facility] EPI/HPF NONE SEEN /HPF 07/27/2024 7:35 PM CDT [facility] URINE SPECIMEN OBTAINED BY CLEAN CATCH PROCEDURE / Unknown 07/27/2024 7:16 PM CDT us Radhames Sales MD URINE ORDERABLES Final Result Performing Organization Address [facility] de Phone Number [facility] [address] [place] [address], [place] [phone] * LIPASE (07/27/2024 6:15 PM CDT) LIPASE 44 16 - 77 UNITS/L 07/27/2024 7:33 PM CDT [facility] 07/27/2024 6:15 PM CDT us Radhames Sales MD LABORATORY Final Result Performing Organization Address [facility] de Phone Number [facility] [address] [place] [address], [place] [phone] from Last 3 Months Insurance [employer] Advance Directives * Full Code (Latest Code Status on File) Date Activated Date Inactivated Comments 07/28/2024 1:39 AM 07/28/2024 10:55 PM Care Teams [employer] Relationship Specialty Start Date End Date None, Provider, PCP - General 10/16/21
[2024-10-03 11:58] VITALS: BP 113/64; PULSE 93; RESP 20; TEMP 36.6; O2SAT 100
--- OUTSIDE RECORDS SUMMARY | 2024-10-03 12:08 | XMS_ITS | Clinical Summary ---
Author Organization [facility] Address [address] [place] [id number] Care Team Providers Care Technology Engineer Name Role Phone None, Provider MD Primary Care Provider Unavaila ble Allergies Active Allergy Reactions Criticality Noted Date Comments Influenza Virus Vaccine Other (see comment) High 11/2024 Auto immune response Penicillins Shortness of Breath,Rash High 12/02/2019 Medications No known medications Active Problems Problem Noted Date Diagnosed Date Bowel obstruction ([facility]) 07/28/2024 Rectal abnormality 07/28/2024 S/P laparoscopic appendectomy 12/03/2019 Encounters Date Type Department Care Team Description 08/23/2024 7:50 PM CDT - 08/24/2024 12:28 AM CDT Emergency [facility] Emergency Services [address] [place] [address] John Stevenson MD Medical Problem Discharge Disposition: Left Against Medical Advice 08/23/2024 Travel 07/28/2024 1:33 AM CDT - 07/28/2024 6:12 PM CDT Hospital Encounter [facility] Med/Surg [address] [place] [address] Dalia Lozano, Denis Unger MD Discharge Disposition: Left Against Medical Advice 07/27/2024 6:31 PM CDT - 07/27/2024 10:37 PM CDT Emergency [facility] Emergency Room [address] [place] [address] Radhames Sales MD Abdominal Pain Discharge Disposition: [...] from your doctor or pharmacy? Never 07/28/2024 [facility] Utilities Answer Date Recorded In the past 12 months has e [employer] gas, oil, or water [employer] threatened to shut off services in your [...] often do you attend chur ch or gnosticist services? Never 07/28/2024 Do you belong to any clubs o r organizations such as shinto groups, unions, fraternal or athletic groups, or [...] medical care, and heating? Somewhat hard 07/28/2024 [facility] [place] of Occupat ional Health - Occupational Stress [...] any time in the past 12 [facility], were you homeless or living in a usp (including now)? No 07/28/2024 Comments No Sex and Gender Information Value Date Recorded Sex Assigned at Female 03/12/2024 8:39 PM NUTRITION TECHNICIAN Legal Sex Female 9:43 AM CDT Gender [...] and discharge planning Lifestyle No Annika Blackmon, CONSTRUCTION MATERIALS TESTER Interventions Community Resource Recommendations Community Resource Services Recommended Domains Addressed Status Status Reason/Outcome Date/Time [facility] Food Pantry Food Insecurity Services Food Insecurity Recommended 09/07/2024 2:45 PM CDT [facility] Financial Assistance Financial Resource Strain Recommended 09/07/2024 2:45 PM CDT [employer] [facility] Financial Resource Strain Recommended 09/07/2024 2:45 PM CDT [facility] Financial Assistance Financial Resource Strain Recommended 09/07/2024 [...] LIGHT YELLOW(A) YELLOW 08/23/2024 9:49 PM CDT [facility] TRANSPARENCY SLIGHTLY CLOUDY(A) CLEAR 08/23/2024 9:49 PM CDT [facility] SPECIFIC GRAVITY (U) ABOVE MEASUREMENT RANGE, UNABLE TO CALCULATE 1.010 - 1.025 08/23/2024 9:49 PM CDT [facility] U PH 6.0 5.0 - 8.5 08/23/2024 9:49 PM CDT [facility] LEUKOCYTES (U) NEGATIVE NEGATIVE 08/23/2024 9:49 PM CDT [facility] NITRITES 2(A) NEGATIVE 08/23/2024 9:49 PM CDT [facility] PROTEIN RANDOM (U) NEGATIVE NEGATIVE 08/23/2024 9:49 PM CDT [facility] GLUCOSE (U) NEGATIVE NEGATIVE 08/23/2024 9:49 PM CDT [facility] KETONES MG/DL (U) NEGATIVE NEGATIVE 08/23/2024 9:49 PM CDT [facility] UROBILINOGEN 0.2 0.2 - 1.0 EU/DL 08/23/2024 9:49 PM CDT [facility] BILIRUBIN (U) NEGATIVE NEGATIVE 08/23/2024 9:49 PM CDT [facility] BLOOD (U) SMALL(A) NEGATIVE 08/23/2024 9:49 PM CDT [facility] URINE SPECIMEN OBTAINED BY CLEAN CATCH PROCEDURE / Unknown 08/23/2024 9:11 PM CDT John Stevenson MD URINE ORDERABLES Final Resu lt [facility] [address] [facility] [address], [place] * (ABNORMAL) URINALYSIS MICRO ONLY (08/23/2024 9:11 PM CDT) WBC/HPF 12(H) <6 /HPF 08/24/2024 1:43 PM CDT [facility] RBC/HPF 9(H) <6 /HPF 08/24/2024 1:43 PM CDT [facility] MUCUS RARE /LPF 08/24/2024 1:43 PM CDT [facility] SQUAMOUS EPITHELIALS FEW /HPF 08/24/2024 1:43 PM CDT [facility] 08/23/2024 9:11 PM CDT John Stevenson MD URINE ORDERABLES Final Resu lt [facility] [address] [place] [address], [place] [phone] * CT ABD+PEL W IV CON ONLY [...] 9:15 PM Narrative 08/23/2024 9:[address] [place] [address] EXAMINATION: CT Abdomen and Pelvis with intravenous [...] Procedure Note Qian Field MD - 08/23/[address] [place] [address] EXAMINATION: CT Abdomen and Pelvis with intravenous [...] - 11.00 x10'3/uL 08/23/2024 8:29 PM CDT [facility] SEG NEUTROPHILS 35 % 10:27 AM CDT [facility] LYMPHOCYTES 52 % 08/24/2024 10:27 AM CDT [facility] MONOCYTES 9 % 08/24/2024 10:27 AM CDT [facility] EOSINOPHILS 4 % 08/24/2024 10:27 AM CDT [facility] ABS. NEUTROPHILS 4.22 1.80 - 7.70 x10'3/uL 08/24/2024 10:27 AM CDT [facility] ABS. LYMPHOCYTES 6.28(H) 1.00 - 4.80 x10'3/uL 08/24/2024 10:27 AM CDT [facility] ABS. MONOCYTES 1.09(H) 0.24 - 0.86 x10'3/uL 08/24/2024 10:27 AM CDT [facility] ABS. EOSINOPHILS 0.48(H) 0.04 - 0.36 x10'3/uL 08/24/2024 10:27 AM CDT [facility] DIFFERENTIAL TYPE MANUAL DIFFERENTIAL 08/24/2024 10:27 AM CDT [facility] RBC MORPHOLOGY RBC MORPHOLOGY APPEARS NORMAL. SLIDE REVIEWED. 08/24/2024 10:27 AM CDT [facility] PLT EST. ADEQUATE 08/24/2024 10:27 AM CDT [facility] 08/23/2024 8:11 PM CDT us John Stevenson MD LABORATORY Final Resul t [facility] [address] [place] [address], [facility] [address] [place] [address] [place] [address], [place] * (ABNORMAL) COMPREHENSIVE METABOLIC PANEL (08/23/2024 8:11 PM CDT) Only the most recent of2 resultswithin the time period is included. GLUCOSE 110(H) 70 - 99 MG/DL 08/23/2024 8:34 PM CDT [facility] BUN 14 7 - 18 MG/DL 08/23/2024 8:34 PM CDT [facility] CREATININE S/P/B 0.86 0.50 - 1.20 MG/DL 08/23/2024 8:34 PM CDT [facility] SODIUM S/P/B 138 136 - 145 MMOL/L 08/23/2024 8:34 PM CDT [facility] POTASSIUM S/P/B 3.9 3.5 - 5.1 MMOL/L 08/23/2024 8:34 PM CDT [facility] CHLORIDE S/P/B 103 100 - 108 MMOL/L 08/23/2024 8:34 PM CDT [facility] CO2 27.6 21.0 - 32.0 MMOL/L 08/23/2024 8:34 PM CDT [facility] CALCIUM S/P/B 8.6 8.5 - 10.1 MG/DL 08/23/2024 8:34 PM CDT [facility] BILIRUBIN TOTAL S/P/B 0.6 0.2 - 1.2 MG/DL 08/23/2024 8:34 PM CDT [facility] Comment: THIS ASSAY IS NOT RECOMMENDED FOR PATIENTS UNDERGOING TREATMENT WITH ELTROMBOPAG DUE TO THE POTENTIAL FOR FALSELY ELEVATED RESULTS. TOTAL PROTEIN S/P/B 6.9 6.4 - 8.2 G/DL 08/23/2024 8:34 PM CDT [facility] ALBUMIN S/P/B 3.3(L) 3.4 - 5.0 G/DL 08/23/2024 8:34 PM CDT [facility] AST 19 15 - 37 U/L 08/23/2024 8:34 PM CDT [facility] ALT 23 14 - 55 U/L 08/23/2024 8:34 PM CDT [facility] ALKALINE PHOSPHATASE S/P/B 129 50 - 136 U/L 08/23/2024 8:34 PM CDT [facility] ANION GAP 7.4 5.0 - 15.0 MMOL/L 08/23/2024 8:34 PM CDT [facility] BUN CREATININE RATIO 16.3 6 - 26 08/23/2024 8:34 PM T [facility] A/G RATIO 0.9(L) 1.0 - 2.5 RATIO 08/23/2024 8:34 PM T [facility] GFR ESTIMATE 82(L) >90 ML/MIN/1.7 3 M2 08/23/2024 8:34 PM T [facility] Comment: NOTE: eGFR is not calculated for patients <18 years of age. This is an estimated GFR calculation using the new CKD EPI creatinine equation without race and so does not require a correction factor for race. This estimated GFR should not be used for calculating drug doses. 08/23/2024 8:11 PM CDT us John Stevenson MD LABORATORY Final Resul t [facility] [address] [facility] [place] [address], * (ABNORMAL) CBC W/DIFF AUTOMATED (08/23/2024 8:11 PM CDT) Only the most recent of3 resultswithin the time period is included. WBC 12.07(H) 4.50 - 11.00 x10'3/uL 08/23/2024 8:26 PM CDT [facility] RBC 4.64 4.00 - 5.20 x10'6/uL 08/23/2024 8:26 PM CDT [facility] HGB 13.7 12.0 - 16.0 G/DL 08/23/2024 8:26 PM CDT [facility] HCT 41.2 38.0 - 48.0 % 08/23/2024 8:26 PM CDT [facility] MCV 88.8 80.0 - 100.0 FL 08/23/2024 8:26 PM CDT [facility] MCH 29.5 26.0 - 34.0 PG 08/23/2024 8:26 PM CDT [facility] MCHC 33.3 31.0 - 37.0 G/DL 08/23/2024 8:26 PM CDT [facility] RDW 12.8 11.6 - 14.8 % 08/23/2024 8:26 PM CDT [facility] PLT 242 130 - 400 x10'3/uL 08/23/2024 8:26 PM CDT [facility] MPV 10.4 7.0 - 12.0 FL 08/23/2024 8:26 PM CDT [facility] CBC COMMENT MANUAL DIFFERENTIAL AND RBC/PLT MORPHOLOGY TO FOLLOW. 08/23/2024 8:26 PM CDT [facility] 08/23/2024 8:11 PM CDT us John Stevenson MD LABORATORY Final Resul t [facility] [address] [place] [address], [place] * (ABNORMAL) DRUG SCREEN RAPID (07/28/2024 9:50 AM CDT) Pathologist [facility] AMPHETAMINE (U) POSITIVE(A) NEGATIVE 07/29/19 10:24 AM CDT [facility] BARBITURATES SCREEN (U) NEGATIVE NEGATIVE 07/28/2024 10:24 AM CDT [facility] BENZODIAZEPINES SCREEN (U) NEGATIVE NEGATIVE 07/28/2024 10:24 AM CDT [facility] CANNABINOIDS SCREEN (U) POSITIVE(A) NEGATIVE 07/28/2024 10:24 AM CDT [facility] COCAINE METABOLITES (U) NEGATIVE NEGATIVE 07/28/2024 10:24 AM CDT [facility] METHADONE (U) NEGATIVE NEGATIVE 07/28/2024 10:24 AM CDT [facility] OPIATE SCREEN (U) POSITIVE(A) NEGATIVE 2024 10:24 AM CDT [facility] PHENCYCLIDINE PCP (U) NEGATIVE NEGATIVE 07/28/2024 10:24 AM CDT [facility] Comment: NOTE: RESULTS OF THIS DRUG SCREEN SHOULD BE USED FOR MEDICAL PURPOSES ONLY AND NOT FOR LEGAL OR EMPLOYMENT PURPOSES. POSITIVE RESULTS ARE NOT CONFIRMED. MEDICATIONS CONTAINING EPHEDRINE MAY CAUSE FALSE POSITIVE AMPHETAMINE CALL [phone], LAB, TO REQUEST CONFIRMATION TESTING. IF CREATININE IS <40 mg/dL. RECOLLECTION IS SUGGESTED. AMPHETAMINE- 500 NG/ML BARBITURATE- 200 NG/ML BENZODIAZEPINES- 200 NG/ML THC- 50 NG/ML COCAINE- 150 NG/ML METHADONE- 300 NG/ML OPIATE- 300 MG/ML PCP- 25 NG/ML CREATININE (U) 161.0 28 - 217 MG/DL 07/28/2024 10:24 AM CDT [facility] URINE SPECIMEN / Unknown 07/28/2024 9:50 AM CDT Dalia Lozano DO URINE ORDERABLES Final Resul t [facility] [address] [place] [address], * PARTIAL THROMBOPLASTIN TIME,PTT (07/28/2024 9:08 AM CDT) PTT 32.6 25.1 - 36.5 SEC 07/28/2024 10:19 AM CDT [facility] 07/28/2024 9:08 AM CDT Jaylyn Byrne MD LABORATORY Final Result Performing Organization Address City/[facility] Co de Phone Number [facility] [address] [place] [address], [place] [phone] * PROTIME/INR, VENOUS (07/28/2024 9:08 AM CDT) PROTIME 11.2 10.2 - 12.9 SEC 07/28/2024 10:19 AM CDT [facility] INR 1.0 07/28/2024 10:19 AM CDT [facility] Comment: Recommended INR Therapeutic Goals: 2.0-3.0 Routine Therapy 2.5-3.5 Mechanical Prosthetic Valves (High Risk) 07/28/2024 9:08 AM CDT us Jaylyn Byrne MD LABORATORY Final Result [facility] [address] [place] [address], [place] [phone] * (ABNORMAL) BASIC METABOLIC PANEL (07/28/2024 7:09 AM CDT) [facility] GLUCOSE 102(H) 70 - 99 MG/DL 07/28/2024 8:13 AM CDT [facility] BUN 11 7 - 18 MG/DL 07/28/2024 8:13 AM CDT [facility] CREATININE S/P/B 0.86 0.55 - 1.02 MG/DL 07/28/2024 8:13 AM CDT [facility] SODIUM S/P/B 140 136 - 145 MMOL/L 07/28/2024 8:13 AM CDT [facility] POTASSIUM S/P/B 4.0 3.5 - 5.1 MMOL/L 07/28/2024 8:13 AM CDT [facility] CHLORIDE S/P/B 109 97 - 115 MMOL/L 07/28/2024 8:13 AM CDT [facility] CO2 27.5 21 - 32 MMOL/L 07/28/2024 8:13 AM CDT [facility] CALCIUM S/P/B 8.9 8.5 - 10.1 MG/DL 07/28/2024 8:13 AM CDT [facility] ANION GAP 3.5 2 - 10 MMOL/L 07/28/2024 8:13 AM CDT [facility] BUN CREATININE RATIO 12.8 6 - 26 07/28/2024 8:13 AM T [facility] GFR ESTIMATE 82(L) >90 ML/MIN/1.7 3 M2 07/28/2024 8:13 AM CDT [facility] Comment: NOTE: eGFR is not calculated [...] DO LABORATORY Final Result Performing Organization Address City/[facility]/ZIP Co de Phone Number [facility] [address] [place] [address], [place] [phone] * CARCINOEMBRYONIC ANTIGEN (07/28/2024 7:09 AM CDT) [facility] CEA 2.8 0.0 - 3.0 NG/ML 07/28/2024 11:09 AM CDT [facility] Comment: Test was performed using the Siemens method. Results obtained with other assay methods or kits cannot be used interchangeably with results obtained by the Siemens method. 07/28/2024 7:09 AM CDT Dalia Lozano DO LABORATORY Final Result Performing Organization Address [facility] Co de Phone Number [facility] [address] [place] [address], [place] [phone] * TEST URINE (07/27/2024 7:16 PM CDT) Pathologist [facility] [place] URINE HCG TEST NEGATIVE NEGATIVE 07/27/2024 7:32 PM CDT [facility] Comment: VERY DILUTE URINE SPECIMENS MAY NOT CONTAIN EXPERIMENTAL ROCKETSLED MECHANIC LEVELS OF HCG. IF IS STILL SUSPECTED, A SERUM HCG TEST IS RECOMMENDED. URINE SPECIMEN FROM URETHRA / Unknown 07/27/2024 7:16 PM CDT Radhames Sales MD URINE ORDERABLES Final Result Performing Organization Address City/[facility] Co de Phone Number [facility] [address] [place] [address], [place] [phone] * (ABNORMAL) Urinalysis, Auto, Complete (07/27/2024 7:16 PM CDT) COLOR (U) YELLOW 07/27/2024 7:35 PM CDT [facility] TRANSPARENCY CLEAR 07/27/2024 7:35 PM CDT [facility] SPECIFIC GRAVITY (U) >1.030(H) 1.000 - 1.030 07/27/2024 7:35 PM CDT [facility] U PH 5.5 5.0 - 9.0 07/27/2024 7:35 PM CDT [facility] LEUKOCYTES (U) NEGATIVE NEGATIVE 07/27/2024 7:35 PM CDT [facility] NITRITES NEGATIVE NEGATIVE 07/27/2024 7:35 PM CDT [facility] PROTEIN RANDOM (U) NEGATIVE NEGATIVE 07/27/2024 7:35 PM CDT [facility] GLUCOSE (U) NEGATIVE NEGATIVE 07/27/2024 7:35 PM CDT [facility] KETONES MG/DL (U) NEGATIVE NEGATIVE 07/27/2024 7:35 PM CDT [facility] BILIRUBIN (U) NEGATIVE NEGATIVE 07/27/2024 7:35 PM CDT [facility] BLOOD (U) TRACE(A) NEGATIVE 07/27/2024 7:35 PM CDT [facility] WBC/HPF NONE SEEN 0 - 5 /HPF 07/27/2024 7:35 PM CDT [facility] RBC/HPF NONE SEEN 0 - 5 /HPF 07/27/2024 7:35 PM CDT [facility] EPI/HPF NONE SEEN /HPF 07/27/2024 7:35 PM CDT [facility] URINE SPECIMEN OBTAINED BY CLEAN CATCH PROCEDURE / Unknown 07/27/2024 7:16 PM CDT us Radhames Sales MD URINE ORDERABLES Final Result Performing Organization Address [facility] de Phone Number [facility] [address] [place] [address], [place] [phone] * LIPASE (07/27/2024 6:15 PM CDT) LIPASE 44 16 - 77 UNITS/L 07/27/2024 7:33 PM CDT [facility] 07/27/2024 6:15 PM CDT us Radhames Sales MD LABORATORY Final Result Performing Organization Address [facility] de Phone Number [facility] [address] [place] [address], [place] [phone] from Last 3 Months Insurance [employer] Advance Directives * Full Code (Latest Code Status on File) Date Activated Date Inactivated Comments 07/28/2024 1:39 AM 07/28/2024 10:55 PM Care Teams Technology Engineer Relationship Specialty Start Date End Date None, Provider, PCP - General 10/16/21
[2024-10-03 12:31] LABS: Hematocrit 43.1 % (37.0-47.0); Hemoglobin 14.1 g/dL (12.0-15.0); Immature Granulocyte Percent A 0.3 % (0-0.5); Lymphocytes Absolute Auto 4.66 K/mm3 (0.9-3.2); Mean Corpuscular HGB Conc 32.7 g/dl (32-36); Mean Corpuscular Hemoglobin 29.9 pg (26-34); Mean Corpuscular Volume 91.3 fl (80-100); Nucleated Red Blood Cells Absolute Auto 0.000 K/mm3 (0.0-0.012); Nucleated Red Blood Cells Perc 0.0 % (0.0-0.2); Platelet Count Result 249 k/mm3 (150-375); Red Blood Count 4.72 M/mm3 (4.2-5.4); White Blood Count 10.6 K/mm3 (4.5-10.0)
[2024-10-03 12:44] LABS: Alanine Aminotransferase 20 U/L (6-35); Albumin Level 3.9 g/dL (3.5-5.1); Alkaline Phosphatase 115 U/L (38-126); Anion Gap 5 mmol/L (4-12); Aspartate Amino Transferase 27 U/L (14-36); Bilirubin,Total 0.4 mg/dL (0.2-1.3); Blood Urea Nitrogen 14 mg/dL (7-17); Calcium 8.9 mg/dL (8.4-10.2); Carbon Dioxide 27 mmol/L (22-30); Chloride 106 mmol/L (98-107); Estimated CRCL calculation 74 ml/min; Estimated Glomerular Filt Rate > 60; Glucose 99 mg/dL (65-110); Potassium 4.0 mmol/L (3.4-5.0); Sodium 138 mmol/L (137-145); Total Protein 7.1 g/dL (6.3-8.2)
--- NOTE | 2024-10-03 12:49 | PC.NURSE ---
walked in room and asked pt is she could give a urine specimen for UA and bedside preg and she stated I'm not I will sign a waiver. Told pt that is ok but will still need a UA for UA with with reflex and to let staff know when she could go. She said ok and thank you. Kimberley the [employer] came to me and said I went into 6 and to collect a UA and she said she was going to leave and stated you don't need my urine. PT then shortly called for nurse to come to her room and TOBY AGRAWAL went in there and told him she is leaving because she feels judged because 2 different people asked her for a UA and stated to him you told me you needed a bigger IV because of my scar tissue. I feel like you and that oriana tree and that nurse out there are judging me. He informed her she was not being judged and this is protocol and she demanded her SLN be removed and she walked out of the ED. Gait is steady and left with another person.
--- NOTE | 2024-10-03 14:39 | ED.ABDPAIN ---
HPI - Abdominal Pain General Chief Complaint: Abdominal Pain Stated Complaint: lower abdomen pressure, pain Time Seen by Provider: 10/03/24 11:48 Source: patient and family Mode of arrival: ambulatory Limitations: no limitations History of Present Illness HPI narrative: 49-year-old here with a complains of lower abdominal and rectal pain on and off for past several months. Patient states that she was and [facility] in month of July had a CT scan done which showed some inflammation around her rectum, was scheduled for colonoscopy however patient states that she left the floor went outside by the time she got back to her room she said she is no longer patient and she was discharged from the hospital without any procedures. Patient has not followed up with any physician after her discharge from the hospital. She presently denies any fever or chills no history of nausea or vomiting. Related Data Allergies Allergy/AdvReac Type Severity Reaction Status Date / Time Penicillins Allergy Mild Hives Verified 10/03/24 11:57 ampicillin Allergy Hives Verified 10/03/24 11:57 Influenza Virus Vaccines AdvReac Severe bradycardia Verified 10/03/24 11:57 Review of Systems Review of Systems: All systems reviewed & are unremarkable except as noted in HPI and below Constitutional: Constitutional: Reports no additional constitutional complaints Eyes: Eyes: Reports no additional eye complaints ENT: Reports system reviewed and no additional complaints, except as documented Cardiovascular: Cardiovascular: Reports no additional cardiovascular complaints Respiratory: Respiratory: Reports no additional respiratory complaints Gastrointestinal: Gastrointestinal: Reports as per HPI Genitourinary: Genitourinary: Reports no additional female genitourinary complaints Musculoskeletal: Musculoskeletal: Reports no additional musculoskeletal complaints PMFSH Social History Social History Gender identity (if verbalized by the patient): Female Sexual Orientation (if Verbalized by the Patient): Straight or Heterosexual Exam Narrative: GENERAL: Well-appearing, well-nourished, and in no acute distress. HEAD: Normocephalic, atraumatic. EYES: PERRLA and EOMI. ENT: Nares clear, no rhinorrhea or epistaxis. Mucous membranes moist. NECK: Supple. CHEST: Clear to auscultation. No respiratory distress. HEART: Regular rate and rhythm. No murmur heard. Normal peripheral pulses. ABDOMEN: Soft, nontender, nondistended, normal active bowel sounds. EXTREMITIES: Normal range of motion. No edema. SKIN: Warm, dry, no rash. NEURO: No focal deficits. Alert and oriented x3. PSYCH: Normal mood and affect. Course Course Emergency Course: Patient signed out AMA, will not wait for CT scan or will not give urine she was arguing with the nurse . Vital Signs Vital signs: Vital Signs Temperature 36.6 C 10/03/24 11:58 Pulse Rate 93 10/03/24 11:58 Respiratory Rate 20 10/03/24 11:58 Blood Pressure 113/64 10/03/24 11:58 Pulse Oximetry 100 10/03/24 11:58 Oxygen Delivery Room Air 10/03/24 11:58 Temperature 36.6 C 10/03/24 11:58 Pulse Rate 93 10/03/24 11:58 Respiratory Rate 20 10/03/24 11:58 Blood Pressure 113/64 10/03/24 11:58 Pulse Oximetry 100 10/03/24 11:58 Oxygen Delivery Room Air 10/03/24 11:58 MDM - Abdominal Pain Lab Data 10/03/24 12:16 10/03/24 12:16 Labs: Lab Results 10/03/24 Range/Units 12:16 WBC 10.6 H (4.5-10.0) K/mm3 RBC 4.72 (4.2-5.4) M/mm3 Hgb 14.1 (12.0-15.0) g/dL Hct 43.1 (37.0-47.0) % MCV 91.3 (80-100) fl MCH 29.9 (26-34) pg MCHC 32.7 (32-36) g/dl RDW 12.5 (11.5-14.5) % Plt Count 249 (150-375) k/mm3 MPV 10.0 (7.4-10.4) fl Immature Gran % (Auto) 0.3 (0-0.5) % Neut % (Auto) 45.7 (45.5-73.1) % Lymph % (Auto) 43.9 (18.3-44.2) % [place] % (Auto) 8.3 (2.6-8.5) % Eos % (Auto) 1.3 (0-4.4) % Baso % (Auto) 0.5 (0.2-1.2) % Lymph # (Auto) 4.66 H (0.9-3.2) K/mm3 [place] # (Auto) 0.9 H (0.1-0.6) K/mm3 Eos # (Auto) 0.1 (0-0.3) K/mm3 Baso # (Auto) 0.1 (0.0-0.1) K/mm3 Abs Immat Gran (auto) 0.03 (0.00-0.031) K/mm3 Absolute Neuts (auto) 4.9 (1.3-6.7) K/mm3 Absolute Nucleated RBC 0.000 (0.0-0.012) K/mm3 Nucleated RBC % 0.0 (0.0-0.2) % Sodium 138 (137-145) mmol/L Potassium 4.0 (3.4-5.0) mmol/L Chloride 106 (98-107) mmol/L Carbon Dioxide 27 (22-30) mmol/L Anion Gap 5 (4-12) mmol/L BUN 14 (7-17) mg/dL Creatinine 0.89 (0.7-1.0) mg/dL Estim Creat Clear Calc 74 ml/min Estimated GFR > 60 (59 - ) Glucose 99 (65-110) mg/dL Lactic Acid 0.7 (0.7-2.0) mmol/L Calcium 8.9 (8.4-10.2) mg/dL Total Bilirubin 0.4 (0.2-1.3) mg/dL AST 27 (14-36) U/L ALT 20 (6-35) U/L Alkaline Phosphatase 115 (38-126) U/L Total Protein 7.1 (6.3-8.2) g/dL Albumin 3.9 (3.5-5.1) g/dL Discharge Plan Discharge Clinical Impression: Abdominal pain Qualifiers: Abdominal location: right lower quadrant Qualified Code(s): R10.31 - Right lower quadrant pain Patient Disposition: Left Against Medical Advice Condition: Stable Instructions: Antibiotic Form Patient Language: Banglades[place] Prescriptions: No Action sulfamethoxazole-trimethoprim [Bactrim DS] 800-160 mg tablet 2 tablet PO Q12H Qty: 40 0RF levofloxacin 500 mg tablet 500 mg PO DAILY Qty: 7 0RF Follow-up/Referrals: PHYSICIAN,[employer] CONTR[employer] INSPECTOR [Primary Care Provider] -
== END 2024-10-03 12:59 | disposition left against medical advice (07) ==
LOC: ANHED 12:07
PROVIDERS: Emergency Provider Family Medicine
DX: R10.31 Right lower quadrant pain (principal)
CPT/HCPCS: 36415; 80053; 83605; 85025; 99283

== ENCOUNTER 2024-10-04 12:31 | Emergency (ER) | payer SELFPAY ==
--- NOTE | ~2024-10-04 | CT_ITS ---
CT of the Abdomen and Pelvis: Indication: Rectal pain Technique: 2.5 mm axial scans were obtained through the abdomen and pelvis following intravenous adm inistration of 100 cc of Omnipaque 350. Dose reduction technique was used on this scan by utilizing a utomated exposure control and iterative reconstruction technique. The dose-length product (DLP) was 6 07.35 mGy-cm. Findings: Scans through the lung bases are unremarkable. Small hiatal hernia present. There is a 6.2 x 5.1 cm heterogeneous enhancing hypodense mass in the left hepatic lobe (axial image 32). 3 additional right hepatic lobe lesions are present, measuring 4.4 cm, 2.3 cm, and 3.5 cm in chidi meter respectively. Similarly lesions demonstrate no focal central necrosis. There is a more solidly avidly enhancing small lesion at the very dome of liver measuring 17 mm in diameter (axial image 24). The spleen, pancreas, gallbladder, adrenals and kidneys are within normal limits. No evidence of ao rtic aneurysm. No lymphadenopathy. Possible subtle irregular wall thickening of the distal rectum. No bowel obstruction. No abscess or f ree air. Images through the pelvis were performed. Urinary bladder unremarkable. No adnexal mass seen. IUD in place. Impression: 4 hypodense, heterogeneous hepatic lesions, as detailed above, largest measuring 6.2 cm in diameter, suspicious for metastatic disease until proven otherwise. Probable subtle irregular wall thickening of distal rectum. Rectal adenocarcinoma is a consideration. Reviewed, dictated and finalized at [facility]. Impression: 4 hypodense, heterogeneous hepatic lesions, as detailed above, largest measurin g 6.2 cm in diameter, suspicious for metastatic disease until proven otherwise. Probable subtle irregular wall thickening of distal rectum. Rectal adenocarcino ma is a consideration.
[2024-10-04 12:31] VITALS: BP 129/86; PULSE 65; RESP 18; TEMP 37.1; O2SAT 100
--- OUTSIDE RECORDS SUMMARY | 2024-10-04 12:34 | XMS_ITS | Clinical Summary ---
Author Organization [facility] Address Counts include 234 beds at the [facility] [place] [address] Care Team Providers Care Stagecraft Teacher Name Role Phone None, Provider MD Primary Care Provider Unavaila ble Allergies Active Allergy Reactions Criticality Noted Date Comments Influenza Virus Vaccine Other (see comment) High 11/2024 Auto immune response Penicillins Shortness of Breath,Rash High 12/02/2019 Medications No known medications Active Problems Problem Noted Date Diagnosed Date Bowel obstruction ([facility]) 07/28/2024 Rectal abnormality 07/28/2024 S/P laparoscopic appendectomy 12/03/2019 Encounters Date Type Department Care Team Description 08/23/2024 7:50 PM CDT - 08/24/2024 12:28 AM CDT Emergency [facility] Emergency Services [address] [place] [address] John Stevenson MD Medical Problem Discharge Disposition: Left Against Medical Advice 08/23/2024 Travel 07/28/2024 1:33 AM CDT - 07/28/2024 6:12 PM CDT Hospital Encounter [facility] Med/Surg [address]rd [place] [address] Dalia Lozano, Denis Unger MD Discharge Disposition: Left Against Medical Advice 07/27/2024 6:31 PM CDT - 07/27/2024 10:37 PM CDT Emergency [facility] Emergency Room [address] [place] [id number] Radhames Sales MD Abdominal Pain Discharge Disposition: [...] from your doctor or pharmacy? Never 07/28/2024 [facility] Utilities Answer Date Recorded In the past 12 months has e [employer] [place] gas, oil, or water [employer] threatened to shut off services in your [...] often do you attend chur ch or judaism services? Never 07/28/2024 Do you belong to any clubs o r organizations such as restoration groups, unions, fraternal or athletic groups, or [...] medical care, and heating? Somewhat hard 07/28/2024 [facility] of Occupat ional Health - Occupational Stress [...] [facility] the [facility], were you [facility] or living in a fci (including now)? 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 Legal Sex Female 9:43 AM CDT Gender [...] and discharge planning Lifestyle No Annika Blackmon, RANGELAND MANAGEMENT SPECIALIST Interventions Community Resource Recommendations Community Resource Services Recommended Domains Addressed Status Status Reason/Outcome Date/Time [facility] Food Pantry Food Insecurity Services Food Insecurity Recommended 09/07/2024 2:45 PM CDT [facility] Financial Assistance Financial Resource Strain Recommended 09/07/2024 2:45 PM CDT [place] [facility] Financial Resource Strain Recommended 09/07/2024 2:45 PM CDT [facility] Financial Assistance Financial Resource Strain Recommended [...] LIGHT YELLOW(A) YELLOW 08/23/2024 9:49 PM CDT [facility] TRANSPARENCY SLIGHTLY CLOUDY(A) CLEAR 08/23/2024 9:49 PM CDT [facility] SPECIFIC GRAVITY (U) ABOVE MEASUREMENT RANGE, UNABLE TO CALCULATE 1.010 - 1.025 08/23/2024 9:49 PM CDT [facility] U PH 6.0 5.0 - 8.5 08/23/2024 9:49 PM CDT [facility] LEUKOCYTES (U) NEGATIVE NEGATIVE 08/23/2024 9:49 PM CDT [facility] NITRITES 2(A) NEGATIVE 08/23/2024 9:49 PM CDT [facility] PROTEIN RANDOM (U) NEGATIVE NEGATIVE 08/23/2024 9:49 PM CDT [facility] GLUCOSE (U) NEGATIVE NEGATIVE 08/23/2024 9:49 PM CDT [facility] KETONES MG/DL (U) NEGATIVE NEGATIVE 08/23/2024 9:49 PM CDT [facility] UROBILINOGEN 0.2 0.2 - 1.0 EU/DL 08/23/2024 9:49 PM CDT [facility] BILIRUBIN (U) NEGATIVE NEGATIVE 08/23/2024 9:49 PM CDT [facility] BLOOD (U) SMALL(A) NEGATIVE 08/23/2024 9:49 PM CDT [facility] URINE SPECIMEN OBTAINED BY CLEAN CATCH PROCEDURE / Unknown 08/23/2024 9:11 PM CDT John Stevenson MD URINE ORDERABLES Final Resu lt [facility] [address] [facility] [address], [place] * (ABNORMAL) URINALYSIS MICRO ONLY (08/23/2024 9:11 PM CDT) WBC/HPF 12(H) <6 /HPF 08/24/2024 1:43 PM CDT [facility] RBC/HPF 9(H) <6 /HPF 08/24/2024 1:43 PM CDT [facility] MUCUS RARE /LPF 08/24/2024 1:43 PM CDT [facility] SQUAMOUS EPITHELIALS FEW /HPF 08/24/2024 1:43 PM CDT [facility] 08/23/2024 9:11 PM CDT John Stevenson MD URINE ORDERABLES Final Resu lt [facility] [address] [place] [address], [place] [phone] * CT ABD+PEL W IV CON ONLY [...] 9:15 PM Narrative 08/23/2024 9:42 [address] [place] [address] EXAMINATION: CT Abdomen and Pelvis with intravenous [...] Procedure Note Qian Field MD - 08/23/[address] [place] [address] EXAMINATION: CT Abdomen and Pelvis with intravenous [...] - 11.00 x10'3/uL 08/23/2024 8:29 PM CDT [facility] SEG NEUTROPHILS 35 % 10:27 AM CDT [facility] LYMPHOCYTES 52 % 08/24/2024 10:27 AM CDT [facility] MONOCYTES 9 % 08/24/2024 10:27 AM CDT [facility] EOSINOPHILS 4 % 08/24/2024 10:27 AM CDT [facility] ABS. NEUTROPHILS 4.22 1.80 - 7.70 x10'3/uL 08/24/2024 10:27 AM CDT [facility] ABS. LYMPHOCYTES 6.28(H) 1.00 - 4.80 x10'3/uL 08/24/2024 10:27 AM CDT [facility] ABS. MONOCYTES 1.09(H) 0.24 - 0.86 x10'3/uL 08/24/2024 10:27 AM CDT [facility] ABS. EOSINOPHILS 0.48(H) 0.04 - 0.36 x10'3/uL 08/24/2024 10:27 AM CDT [facility] DIFFERENTIAL TYPE MANUAL DIFFERENTIAL 08/24/2024 10:27 AM CDT [facility] RBC MORPHOLOGY RBC MORPHOLOGY APPEARS NORMAL. SLIDE REVIEWED. 08/24/2024 10:27 AM CDT [facility] PLT EST. ADEQUATE 08/24/2024 10:27 AM CDT [facility] 08/23/2024 8:11 PM CDT us John Stevenson MD LABORATORY Final Resul t [facility] [address] [place] [address], [facility] [address] [place] [address] [place] [address], [place] * (ABNORMAL) COMPREHENSIVE METABOLIC PANEL (08/23/2024 8:11 PM CDT) Only the most recent of2 resultswithin the time period is included. GLUCOSE 110(H) 70 - 99 MG/DL 08/23/2024 8:34 PM CDT [facility] BUN 14 7 - 18 MG/DL 08/23/2024 8:34 PM CDT [facility] CREATININE S/P/B 0.86 0.50 - 1.20 MG/DL 08/23/2024 8:34 PM CDT [facility] SODIUM S/P/B 138 136 - 145 MMOL/L 08/23/2024 8:34 PM CDT [facility] POTASSIUM S/P/B 3.9 3.5 - 5.1 MMOL/L 08/23/2024 8:34 PM CDT [facility] CHLORIDE S/P/B 103 100 - 108 MMOL/L 08/23/2024 8:34 PM CDT [facility] CO2 27.6 21.0 - 32.0 MMOL/L 08/23/2024 8:34 PM CDT [facility] CALCIUM S/P/B 8.6 8.5 - 10.1 MG/DL 08/23/2024 8:34 PM CDT [facility] BILIRUBIN TOTAL S/P/B 0.6 0.2 - 1.2 MG/DL 08/23/2024 8:34 PM CDT [facility] Comment: THIS ASSAY IS NOT RECOMMENDED FOR PATIENTS UNDERGOING TREATMENT WITH ELTROMBOPAG DUE TO THE POTENTIAL FOR FALSELY ELEVATED RESULTS. TOTAL PROTEIN S/P/B 6.9 6.4 - 8.2 G/DL 08/23/2024 8:34 PM CDT [facility] ALBUMIN S/P/B 3.3(L) 3.4 - 5.0 G/DL 08/23/2024 8:34 PM CDT [facility] AST 19 15 - 37 U/L 08/23/2024 8:34 PM CDT [facility] ALT 23 14 - 55 U/L 08/23/2024 8:34 PM CDT [facility] ALKALINE PHOSPHATASE S/P/B 129 50 - 136 U/L 08/23/2024 8:34 PM CDT [facility] ANION GAP 7.4 5.0 - 15.0 MMOL/L 08/23/2024 8:34 PM CDT [facility] BUN CREATININE RATIO 16.3 6 - 26 08/23/2024 8:34 PM T [facility] A/G RATIO 0.9(L) 1.0 - 2.5 RATIO 08/23/2024 8:34 PM T [facility] GFR ESTIMATE 82(L) >90 ML/MIN/1.7 3 M2 08/23/2024 8:34 PM T [facility] Comment: NOTE: eGFR is not calculated for patients <18 years of age. This is an estimated GFR calculation using the new CKD EPI creatinine equation without race and so does not require a correction factor for race. This estimated GFR should not be used for calculating drug doses. 08/23/2024 8:11 PM CDT us John Stevenson MD LABORATORY Final Resul t [facility] [address] [facility] [address], * (ABNORMAL) CBC W/DIFF AUTOMATED (08/23/2024 8:11 PM CDT) Only the most recent of3 resultswithin the time period is included. WBC 12.07(H) 4.50 - 11.00 x10'3/uL 08/23/2024 8:26 PM CDT [facility] RBC 4.64 4.00 - 5.20 x10'6/uL 08/23/2024 8:26 PM CDT [facility] HGB 13.7 12.0 - 16.0 G/DL 08/23/2024 8:26 PM CDT [facility] HCT 41.2 38.0 - 48.0 % 08/23/2024 8:26 PM CDT [facility] MCV 88.8 80.0 - 100.0 FL 08/23/2024 8:26 PM CDT [facility] MCH 29.5 26.0 - 34.0 PG 08/23/2024 8:26 PM CDT [facility] MCHC 33.3 31.0 - 37.0 G/DL 08/23/2024 8:26 PM CDT [facility] RDW 12.8 11.6 - 14.8 % 08/23/2024 8:26 PM CDT [facility] PLT 242 130 - 400 x10'3/uL 08/23/2024 8:26 PM CDT [facility] MPV 10.4 7.0 - 12.0 FL 08/23/2024 8:26 PM CDT [facility] CBC COMMENT MANUAL DIFFERENTIAL AND RBC/PLT MORPHOLOGY TO FOLLOW. 08/23/2024 8:26 PM CDT [facility] 08/23/2024 8:11 PM CDT us John Stevenson MD LABORATORY [facility] [address] [place] [address], [place] * (ABNORMAL) DRUG SCREEN RAPID (07/28/2024 9:50 AM CDT) Pathologist [facility] AMPHETAMINE (U) POSITIVE(A) NEGATIVE 07/29/19 10:24 AM CDT [facility] BARBITURATES SCREEN (U) NEGATIVE NEGATIVE 07/28/2024 10:24 AM CDT [facility] BENZODIAZEPINES SCREEN (U) NEGATIVE NEGATIVE 07/28/2024 10:24 AM CDT [facility] CANNABINOIDS SCREEN (U) POSITIVE(A) NEGATIVE 07/28/2024 10:24 AM CDT [facility] COCAINE METABOLITES (U) NEGATIVE NEGATIVE 07/28/2024 10:24 AM CDT [facility] METHADONE (U) NEGATIVE NEGATIVE 07/28/2024 10:24 AM CDT [facility] OPIATE SCREEN (U) POSITIVE(A) NEGATIVE 2024 10:24 AM CDT [facility] PHENCYCLIDINE PCP (U) NEGATIVE NEGATIVE 07/28/2024 10:24 AM CDT [facility] Comment: NOTE: RESULTS OF THIS DRUG SCREEN SHOULD BE USED FOR MEDICAL PURPOSES ONLY AND NOT FOR LEGAL OR EMPLOYMENT PURPOSES. POSITIVE RESULTS ARE NOT CONFIRMED. MEDICATIONS CONTAINING EPHEDRINE MAY CAUSE FALSE POSITIVE AMPHETAMINE CALL [phone], LAB, TO REQUEST CONFIRMATION TESTING. IF CREATININE IS <40 mg/dL. RECOLLECTION IS SUGGESTED. AMPHETAMINE- 500 NG/ML BARBITURATE- 200 NG/ML BENZODIAZEPINES- 200 NG/ML THC- 50 NG/ML COCAINE- 150 NG/ML METHADONE- 300 NG/ML OPIATE- 300 MG/ML PCP- 25 NG/ML CREATININE (U) 161.0 28 - 217 MG/DL 07/28/2024 10:24 AM CDT [facility] URINE SPECIMEN / Unknown 07/28/2024 9:50 AM CDT Dalia Lozano DO URINE ORDERABLES Final Resul t [facility] [address] [place] [id number], * PARTIAL THROMBOPLASTIN TIME,PTT (07/28/2024 9:08 AM CDT) PTT 32.6 25.1 - 36.5 SEC 07/28/2024 10:19 AM CDT [facility] 07/28/2024 9:08 AM CDT Jaylyn Byrne MD LABORATORY Final Result Performing Organization Address [facility] Co de Phone Number [facility] [address] [place] [address], [place] [phone] * PROTIME/INR, VENOUS (07/28/2024 9:08 AM CDT) PROTIME 11.2 10.2 - 12.9 SEC 07/28/2024 10:19 AM CDT [facility] INR 1.0 07/28/2024 10:19 AM CDT [facility] Comment: Recommended INR Therapeutic Goals: 2.0-3.0 Routine Therapy 2.5-3.5 Mechanical Prosthetic Valves (High Risk) 07/28/2024 9:08 AM CDT us Jaylyn Byrne MD LABORATORY Final Result [facility] [address] [place] [address], [place] [phone] * (ABNORMAL) BASIC METABOLIC PANEL (07/28/2024 7:09 AM CDT) [facility] GLUCOSE 102(H) 70 - 99 MG/DL 07/28/2024 8:13 AM CDT [facility] BUN 11 7 - 18 MG/DL 07/28/2024 8:13 AM CDT [facility] CREATININE S/P/B 0.86 0.55 - 1.02 MG/DL 07/28/2024 8:13 AM CDT [facility] SODIUM S/P/B 140 136 - 145 MMOL/L 07/28/2024 8:13 AM CDT [facility] POTASSIUM S/P/B 4.0 3.5 - 5.1 MMOL/L 07/28/2024 8:13 AM CDT [facility] CHLORIDE S/P/B 109 97 - 115 MMOL/L 07/28/2024 8:13 AM CDT [facility] CO2 27.5 21 - 32 MMOL/L 07/28/2024 8:13 AM CDT [facility] CALCIUM S/P/B 8.9 8.5 - 10.1 MG/DL 07/28/2024 8:13 AM CDT [facility] ANION GAP 3.5 2 - 10 MMOL/L 07/28/2024 8:13 AM CDT [facility] BUN CREATININE RATIO 12.8 6 - 26 07/28/2024 8:13 AM T [facility] GFR ESTIMATE 82(L) >90 ML/MIN/1.7 3 M2 07/28/2024 8:13 AM CDT [facility] Comment: NOTE: eGFR is not [...] DO LABORATORY Final Result Performing Organization Address [facility]/ZIP Co de Phone Number [facility] [address] [place] [address], [place] [phone] * CARCINOEMBRYONIC ANTIGEN (07/28/2024 7:09 AM CDT) [facility] CEA 2.8 0.0 - 3.0 NG/ML 07/28/2024 11:09 AM CDT [facility] Comment: Test was performed using the Siemens method. Results obtained with other assay methods or kits cannot be used interchangeably with results obtained by the Siemens method. 07/28/2024 7:09 AM CDT Dalia Lozano DO LABORATORY Final Result Performing Organization Address [facility] Co de Phone Number [facility] [address] [place] [address], [place] [phone] * TEST URINE (07/27/2024 7:16 PM CDT) Pathologist [facility] URINE HCG TEST NEGATIVE NEGATIVE 07/27/2024 7:32 PM CDT [facility] Comment: VERY DILUTE URINE SPECIMENS MAY NOT CONTAIN VALVE REPAIRER RECLAMATION LEVELS OF HCG. IF IS STILL SUSPECTED, A SERUM HCG TEST IS RECOMMENDED. URINE SPECIMEN FROM URETHRA / Unknown 07/27/2024 7:16 PM CDT Radhames Sales MD URINE ORDERABLES Final Result Performing Organization Address [facility] Co de Phone Number [facility] [address] [place] [address], [place] [phone] * (ABNORMAL) Urinalysis, Auto, Complete (07/27/2024 7:16 PM CDT) COLOR (U) YELLOW 07/27/2024 7:35 PM CDT [facility] TRANSPARENCY CLEAR 07/27/2024 7:35 PM CDT [facility] SPECIFIC GRAVITY (U) >1.030(H) 1.000 - 1.030 07/27/2024 7:35 PM CDT [facility] U PH 5.5 5.0 - 9.0 07/27/2024 7:35 PM CDT [facility] LEUKOCYTES (U) NEGATIVE NEGATIVE 07/27/2024 7:35 PM CDT [facility] NITRITES NEGATIVE NEGATIVE 07/27/2024 7:35 PM CDT [facility] PROTEIN RANDOM (U) NEGATIVE NEGATIVE 07/27/2024 7:35 PM CDT [facility] GLUCOSE (U) NEGATIVE NEGATIVE 07/27/2024 7:35 PM CDT [facility] KETONES MG/DL (U) NEGATIVE NEGATIVE 07/27/2024 7:35 PM CDT [facility] BILIRUBIN (U) NEGATIVE NEGATIVE 07/27/2024 7:35 PM CDT [facility] BLOOD (U) TRACE(A) NEGATIVE 07/27/2024 7:35 PM CDT [facility] WBC/HPF NONE SEEN 0 - 5 /HPF 07/27/2024 7:35 PM CDT [facility] RBC/HPF NONE SEEN 0 - 5 /HPF 07/27/2024 7:35 PM CDT [facility] EPI/HPF NONE SEEN /HPF 07/27/2024 7:35 PM CDT [facility] URINE SPECIMEN OBTAINED BY CLEAN CATCH PROCEDURE / Unknown 07/27/2024 7:16 PM CDT us Radhames Sales MD URINE ORDERABLES Final Result Performing Organization Address [facility] de Phone Number [facility] [address] [place] [address], [place] [phone] * LIPASE (07/27/2024 6:15 PM CDT) LIPASE 44 16 - 77 UNITS/L 07/27/2024 7:33 PM CDT [facility] 07/27/2024 6:15 PM CDT us Radhames Sales MD LABORATORY Final Result Performing Organization Address [facility] de Phone Number [facility] [address] [place] [address], [place] [phone] from Last 3 Months Insurance [employer] Advance Directives * Full Code (Latest Code Status on File) Date Activated Date Inactivated Comments 07/28/2024 1:39 AM 07/28/2024 10:55 PM Care Teams Stagecraft Teacher Relationship Specialty Start Date End Date None, Provider, PCP - General 10/16/21
--- NOTE | 2024-10-04 12:37 | ED.GENADULT ---
HPI - General Adult General Chief complaint: Abdominal Pain Stated complaint: rectal pain Time Seen by Provider: 10/04/24 12:34 History of Present Illness HPI narrative: Ofelia is a 49F with a PMH of proctitis that presented to the ED with pain in her rectum for weeks. An outside CT reportedly showed rectal thickening and liver lesions. She has been in a few facilities since then but has left AMA or been kicked out. No melena, hematochezia, CP, dyspnea or vomiting. She stated meth or MJ may be in her system. She has been taking mag oxide and has frequent watery diarrhea. 25lb weight loss in the last year. Related Data Allergies Allergy/AdvReac Type Severity Reaction Status Date / Time Penicillins Allergy Mild Hives Verified 10/04/24 12:49 ampicillin Allergy Hives Verified 10/04/24 12:49 Influenza Virus Vaccines AdvReac Severe bradycardia Verified 10/04/24 12:49 Review of Systems Review of Systems: All systems reviewed & are unremarkable except as noted in HPI and below [facility] Social History Social History Gender identity (if verbalized by the patient): Female Sexual Orientation (if Verbalized by the Patient): Straight or Heterosexual Exam Const: General: cooperative, healthy appearing, comfortable, no acute distress, well developed, alert, awake and Physically active Orientation/consciousness: oriented to person, oriented to place and oriented to time HENMT: Head: normal to inspection, normocephalic and atraumatic Ears: hearing grossly normal bilaterally and external ears normal Face/Nose/Sinus: Normal external nose present Eyes: General: appearance normal, both eyes and all related structures Periorbital: periorbital findings normal Sclera: sclerae normal Pupils: Equal, round and reactive pupils present Neck: Neck: normal visual inspection Chest: Chest palpation & inspection: normal inspection of the chest Resp: Effort & Inspection: normal respiratory effort, able to speak in complete sentences and no respiratory distress Auscultation: clear to auscultation bilaterally Cardio: Jugular venous distension: no JVD Rate: regular rate Rhythm: regular rhythm GI: Inspection: normal to inspection GI Palp: Yes Soft to palpation Auscultation: normal bowel sounds Other: perirectal area was red and inflamed Skin: General skin exam: normal color and no rashes or lesions noted Neuro: General: oriented to person, oriented to place and oriented to time Cranial nerves: Yes Equal, round and reactive pupils present Extrem: General: normal to inspection Course Course Emergency Course: UA c/w UTI, given ceftriaxone. Labs largely unremarkable. UDS+ for amphetamines and cannabinoids CT of the Abdomen and Pelvis: Indication: Rectal pain Technique: 2.5 mm axial scans were obtained through the abdomen and pelvis following intravenous administration of 100 cc of Omnipaque 350. Dose reduction technique was used on this scan by utilizing automated exposure control and iterative reconstruction technique. The dose-length product (DLP) was 607.35 mGy-cm. Findings: Scans through the lung bases are unremarkable. Small hiatal hernia present. There is a 6.2 x 5.1 cm heterogeneous enhancing hypodense mass in the left hepatic lobe (axial image 32). 3 additional right hepatic lobe lesions are present, measuring 4.4 cm, 2.3 cm, and 3.5 cm in diameter respectively. Similarly lesions demonstrate no focal central necrosis. There is a more solidly avidly enhancing small lesion at the very dome of liver measuring 17 mm in diameter (axial image 24). The spleen, pancreas, gallbladder, adrenals and kidneys are within normal limits. No evidence of aortic aneurysm. No lymphadenopathy. Possible subtle irregular wall thickening of the distal rectum. No bowel obstruction. No abscess or free air. Images through the pelvis were performed. Urinary bladder unremarkable. No adnexal mass seen. IUD in place. Impression: 4 hypodense, heterogeneous hepatic lesions, as detailed above, largest measuring 6.2 cm in diameter, suspicious for metastatic disease until proven otherwise. Probable subtle irregular wall thickening of distal rectum. Rectal adenocarcinoma is a consideration. I spoke with Ann of the hospitalist group that declined and recommended outpatient treatment. She recommended contacting GI directly, however, GI does not have admitting privileges. As she does not have a PCP a message was sent to [facility] to get her an establish care appt in 2 days time. Vital Signs Vital signs: Vital Signs Temperature 98.7 F 10/04/24 12:31 Pulse Rate 65 10/04/24 12:31 Respiratory Rate 18 10/04/24 12:31 Blood Pressure 129/86 10/04/24 12:31 Pulse Oximetry 100 10/04/24 12:31 Oxygen Delivery Room Air 10/04/24 12:31 Temperature 98.7 F 10/04/24 12:31 Pulse Rate 70 10/04/24 14:03 Respiratory Rate 16 10/04/24 14:03 Blood Pressure 116/70 10/04/24 14:03 Pulse Oximetry 99 10/04/24 14:03 Oxygen Delivery Room Air 10/04/24 12:31 Medical Decision Making Vital Signs Vital Signs: Vital Signs Temperature 98.7 F 10/04/24 12:31 Pulse Rate 65 10/04/24 12:31 Respiratory Rate 18 10/04/24 12:31 Blood Pressure 129/86 10/04/24 12:31 Pulse Oximetry 100 10/04/24 12:31 Oxygen Delivery Room Air 10/04/24 12:31 Temperature 98.7 F 10/04/24 12:31 Pulse Rate 70 10/04/24 14:03 Respiratory Rate 16 10/04/24 14:03 Blood Pressure 116/70 10/04/24 14:03 Pulse Oximetry 99 10/04/24 14:03 Oxygen Delivery Room Air 10/04/24 12:31 Lab Data 10/04/24 13:04 10/04/24 13:04 Labs: Lab Results 10/04/24 10/04/24 Range/Units 13:02 13:04 WBC 11.0 H (4.8-10.8) K/mm3 RBC 4.57 (4.20-5.40) M/mm3 Hgb 13.8 (12.0-15.0) g/dL Hct 41.5 (35.0-49.0) % MCV 90.8 (78.0-102.0) fL MCH 30.2 (27.0-31.0) pg MCHC 33.3 (32-36) g/dL RDW 12.3 (11.6-14.4) % Plt Count 266 (150-420) K/mm3 MPV 9.9 (9.2-11.8) fl Immature Gran % (Auto) 0.3 H (0.0-0.0) % Neut % (Auto) 45.1 L (50.0-70.0) % Lymph % (Auto) 45.0 H (18.0-42.0) % [place] % (Auto) 7.7 (2.0-11.0) % Eos % (Auto) 1.5 (1.0-6.0) % Baso % (Auto) 0.4 (0.0-1.0) % Lymph # (Auto) 4.95 H (1.10-4.50) K/mm3 [place] # (Auto) 0.85 (0.10-0.90) K/mm3 Eos # (Auto) 0.16 (0.02-0.50) K/mm3 Baso # (Auto) 0.04 (0.00-0.10) K/mm3 Abs Immat Gran (auto) 0.03 H (0.00-0.00) K/mm3 Absolute Neuts (auto) 4.96 (1.70-7.20) K/mm3 Absolute Nucleated RBC 0.00 (0.00-0.00) K/mm3 Nucleated RBC % 0.0 (0-0.0) % Sodium 140 (137-145) mmol/L Potassium 4.1 (3.4-5.0) mmol/L Chloride 107 (98-107) mmol/L Carbon Dioxide 28 (22-30) mmol/L Anion Gap 5 (4-12) mmol/L BUN 11 (7-17) mg/dL Creatinine 0.90 (0.7-1.0) mg/dL Estim Creat Clear Calc 75 ml/min Estimated GFR > 60 (59 - ) Glucose 100 (65-110) mg/dL Calculated Osmolality 289 (285-295) mOsm/kg Calcium 9.2 (8.4-10.2) mg/dL Total Bilirubin 0.5 (0.2-1.3) mg/dL AST 25 (14-36) U/L ALT 19 (6-35) U/L Alkaline Phosphatase 107 (38-126) U/L Total Protein 7.0 (6.3-8.2) g/dL Albumin 4.0 (3.5-5.1) g/dL Lipase 74 (23-300) U/L Urine Color Light yellow (Yellow) Urine Appearance Cloudy A (Clear) Urine pH 6.0 (5.0-8.0) Ur Specific [place] 1.020 (1.010-1.020) Urine Protein Negative (Negative) Urine Glucose (UA) Negative (Negative) Urine Ketones Negative (Negative) Ur Blood (Man) Trace-intact H (Negative) Urine Nitrate Positive H (Negative) Urine Bilirubin Negative (Negative) Urine Urobilinogen 0.2 (0.2-1.0) mg/dL Leukocyte Esterase Rfl 1+ H (Negative) ALEKSANDR/UL Urine RBC 0-2 (0-2) /hpf Urine WBC 7-9 H (0-3) /hpf Ur Squamous Epith Cells Few (Few) /hpf Urine Bacteria 4+ H (None) /hpf Urine Opiates Screen Negative (Negative) Urine Methadone Screen Negative (Negative) Ur Barbiturates Screen Negative (Negative) Ur Phencyclidine Scrn Negative (Negative) Ur Amphetamine Screen Positive A (Negative) U Benzodiazepines Scrn Negative (Negative) Urine Cocaine Screen Negative (Negative) U Cannabinoids Screen Positive A (Negative) Discharge Plan Discharge Clinical Impression: UTI (urinary tract infection), Rectal mass, Lesion of liver Patient Disposition: Home Condition: Stable Instructions: Antibiotic Form Patient Language: Chinese Prescriptions: New sulfamethoxazole-trimethoprim [Bactrim] 400-80 mg tablet 1 tablet PO HS Qty: 10 0RF No Action sulfamethoxazole-trimethoprim [Bactrim DS] 800-160 mg tablet 2 tablet PO Q12H Qty: 40 0RF levofloxacin 500 mg tablet 500 mg PO DAILY Qty: 7 0RF Follow-up/Referrals: UNKNOWN,DOCTOR [Non-Staff] -
[2024-10-04 13:09] LABS: Hematocrit 41.5 % (35.0-49.0); Hemoglobin 13.8 g/dL (12.0-15.0); Immature Granulocyte Percent A 0.3 % (0.0-0.0); Lymphocytes Absolute Auto 4.95 K/mm3 (1.10-4.50); Mean Corpuscular HGB Conc 33.3 g/dL (32-36); Mean Corpuscular Hemoglobin 30.2 pg (27.0-31.0); Mean Corpuscular Volume 90.8 fL (78.0-102.0); Nucleated Red Blood Cells Absolute Auto 0.00 K/mm3 (0.00-0.00); Nucleated Red Blood Cells Perc 0.0 % (0-0.0); Platelet Count Result 266 K/mm3 (150-420); Red Blood Count 4.57 M/mm3 (4.20-5.40); White Blood Count 11.0 K/mm3 (4.8-10.8)
[2024-10-04 13:19] LABS: Add Urine Microscopic? YES; Appearance Urine Cloudy (Clear); Glucose Urine UA Negative (Negative); Leukocyte Esterase Ur 1+ LEU/UL (Negative); Nitrate Urine Positive (Negative); Specific Grav Ur 1.020 (1.010-1.020)
[2024-10-04 13:19] LABS: Alanine Aminotransferase 19 U/L (6-35); Albumin Level 4.0 g/dL (3.5-5.1); Alkaline Phosphatase 107 U/L (38-126); Anion Gap 5 mmol/L (4-12); Aspartate Amino Transferase 25 U/L (14-36); Bilirubin,Total 0.5 mg/dL (0.2-1.3); Blood Urea Nitrogen 11 mg/dL (7-17); Calcium 9.2 mg/dL (8.4-10.2); Carbon Dioxide 28 mmol/L (22-30); Chloride 107 mmol/L (98-107); Estimated CRCL calculation 75 ml/min; Estimated Glomerular Filt Rate > 60; Glucose 100 mg/dL (65-110); Lipase 74 U/L (23-300); Osmolality Calculated 289 mOsm/kg (285-295); Potassium 4.1 mmol/L (3.4-5.0); Sodium 140 mmol/L (137-145); Total Protein 7.0 g/dL (6.3-8.2)
--- OUTSIDE RECORDS SUMMARY | 2024-10-04 13:21 | XMS_ITS | Clinical Summary ---
Author Organization [facility] Address Critical access hospital[address] [place] [address] Care Team Providers Care Medicine Tech Name Role Phone None, Provider MD Primary Care Provider Unavaila ble Allergies Active Allergy Reactions Criticality Noted Date Comments Influenza Virus Vaccine Other (see comment) High 11/2024 Auto immune response Penicillins Shortness of Breath,Rash High 12/02/2019 Medications No known medications Active Problems Problem Noted Date Diagnosed Date Bowel obstruction ([facility]) 07/28/2024 Rectal abnormality 07/28/2024 S/P laparoscopic appendectomy 12/03/2019 Encounters Date Type Department Care Team Description 08/23/2024 7:50 PM CDT - 08/24/2024 12:28 AM CDT Emergency [facility] Emergency Services [address] [place] [address] John Stevenson MD Medical Problem Discharge Disposition: Left Against Medical Advice 08/23/2024 Travel 07/28/2024 1:33 AM CDT - 07/28/2024 6:12 PM CDT Hospital Encounter [facility] Med/Surg [address] [place] [address] Dalia Lozano, Dneis Unger MD Discharge Disposition: Left Against Medical Advice 07/27/2024 6:31 PM CDT - 07/27/2024 10:37 PM CDT Emergency [facility] Emergency Room [address] [place] [id number] Radhames Sales MD Abdominal Pain Discharge Disposition: [...] your doctor or pharmacy? Never 07/28/2024 [facility] Utilities Answer Date Recorded In the past 12 months has e [email or web address] gas, oil, or water [employer] threatened to shut off services in your [...] often do you attend chur ch or restorationist services? Never 07/28/2024 Do you belong to any clubs o r organizations such as oriental orthodox groups, unions, fraternal or athletic groups, or [...] medical care, and heating? Somewhat hard 07/28/2024 [facility] [place] of Occupat ional Health - Occupational Stress [...] any time in the past 12 m [facility], were you homeless or living in a mcc (including now)? No 07/28/2024 Comments No Sex and Gender Information Value Date Recorded Sex Assigned at Female 03/12/2024 8:39 PM SHUTTLE [employer]AN [employer]IVER Legal Sex Female 9:43 AM CDT Gender [...] and discharge planning Lifestyle No Annika Blackmon, ANALYTICS LEAD Interventions Community Resource Recommendations Community Resource Services Recommended Domains Addressed Status Status Reason/Outcome Date/Time [facility] Food Pantry Food Insecurity Services Food Insecurity Recommended 09/07/2024 2:45 PM CDT [facility] Financial Assistance Financial Resource Strain Recommended 09/07/2024 2:45 PM CDT [place] [facility] Financial Resource Strain Recommended 09/07/2024 2:45 PM CDT [facility] Financial Assistance Financial Resource Strain Recommended [...] LIGHT YELLOW(A) YELLOW 08/23/2024 9:49 PM CDT [facility] TRANSPARENCY SLIGHTLY CLOUDY(A) CLEAR 08/23/2024 9:49 PM CDT [facility] SPECIFIC GRAVITY (U) ABOVE MEASUREMENT RANGE, UNABLE TO CALCULATE 1.010 - 1.025 08/23/2024 9:49 PM CDT [facility] U PH 6.0 5.0 - 8.5 08/23/2024 9:49 PM CDT [facility] LEUKOCYTES (U) NEGATIVE NEGATIVE 08/23/2024 9:49 PM CDT [facility] NITRITES 2(A) NEGATIVE 08/23/2024 9:49 PM CDT [facility] PROTEIN RANDOM (U) NEGATIVE NEGATIVE 08/23/2024 9:49 PM CDT [facility] GLUCOSE (U) NEGATIVE NEGATIVE 08/23/2024 9:49 PM CDT [facility] KETONES MG/DL (U) NEGATIVE NEGATIVE 08/23/2024 9:49 PM CDT [facility] UROBILINOGEN 0.2 0.2 - 1.0 EU/DL 08/23/2024 9:49 PM CDT [facility] BILIRUBIN (U) NEGATIVE NEGATIVE 08/23/2024 9:49 PM CDT [facility] BLOOD (U) SMALL(A) NEGATIVE 08/23/2024 9:49 PM CDT [facility] URINE SPECIMEN OBTAINED BY CLEAN CATCH PROCEDURE / Unknown 08/23/2024 9:11 PM CDT John Stevenson MD URINE ORDERABLES Final Resu lt [facility] [address] [facility] [place] [address], [place] * (ABNORMAL) URINALYSIS MICRO ONLY (08/23/2024 9:11 PM CDT) WBC/HPF 12(H) <6 /HPF 08/24/2024 1:43 PM CDT [facility] RBC/HPF 9(H) <6 /HPF 08/24/2024 1:43 PM CDT [facility] MUCUS RARE /LPF 08/24/2024 1:43 PM CDT [facility] SQUAMOUS EPITHELIALS FEW /HPF 08/24/2024 1:43 PM CDT [facility] 08/23/2024 9:11 PM CDT John Stevenson MD URINE ORDERABLES Final Resu lt [facility] [address] [place] [address], [place] [phone] * CT ABD+PEL W IV CON ONLY [...] 9:15 PM Narrative 08/23/2024 9:42 PM CDT [address] [place] [address] EXAMINATION: CT Abdomen and Pelvis with intravenous [...] Procedure Note Qian Field MD - 08/23/[address] [place] [address] EXAMINATION: CT Abdomen and Pelvis with intravenous [...] - 11.00 x10'3/uL 08/23/2024 8:29 PM CDT [facility] SEG NEUTROPHILS 35 % 10:27 AM CDT [facility] LYMPHOCYTES 52 % 08/24/2024 10:27 AM CDT [facility] MONOCYTES 9 % 08/24/2024 10:27 AM CDT [facility] EOSINOPHILS 4 % 08/24/2024 10:27 AM CDT [facility] ABS. NEUTROPHILS 4.22 1.80 - 7.70 x10'3/uL 08/24/2024 10:27 AM CDT [facility] ABS. LYMPHOCYTES 6.28(H) 1.00 - 4.80 x10'3/uL 08/24/2024 10:27 AM CDT [facility] ABS. MONOCYTES 1.09(H) 0.24 - 0.86 x10'3/uL 08/24/2024 10:27 AM CDT [facility] ABS. EOSINOPHILS 0.48(H) 0.04 - 0.36 x10'3/uL 08/24/2024 10:27 AM CDT [facility] DIFFERENTIAL TYPE MANUAL DIFFERENTIAL 08/24/2024 10:27 AM CDT [facility] RBC MORPHOLOGY RBC MORPHOLOGY APPEARS NORMAL. SLIDE REVIEWED. 08/24/2024 10:27 AM CDT [facility] PLT EST. ADEQUATE 08/24/2024 10:27 AM CDT [facility] 08/23/2024 8:11 PM CDT us John Stevenson MD LABORATORY Final Resul t [facility] [address] [place] [address], [facility] [address] [place] [address] [place] [address], [place] * (ABNORMAL) COMPREHENSIVE METABOLIC PANEL (08/23/2024 8:11 PM CDT) Only the most recent of2 resultswithin the time period is included. GLUCOSE 110(H) 70 - 99 MG/DL 08/23/2024 8:34 PM CDT [facility] BUN 14 7 - 18 MG/DL 08/23/2024 8:34 PM CDT [facility] CREATININE S/P/B 0.86 0.50 - 1.20 MG/DL 08/23/2024 8:34 PM CDT [facility] SODIUM S/P/B 138 136 - 145 MMOL/L 08/23/2024 8:34 PM CDT [facility] POTASSIUM S/P/B 3.9 3.5 - 5.1 MMOL/L 08/23/2024 8:34 PM CDT [facility] CHLORIDE S/P/B 103 100 - 108 MMOL/L 08/23/2024 8:34 PM CDT [facility] CO2 27.6 21.0 - 32.0 MMOL/L 08/23/2024 8:34 PM CDT [facility] CALCIUM S/P/B 8.6 8.5 - 10.1 MG/DL 08/23/2024 8:34 PM CDT [facility] BILIRUBIN TOTAL S/P/B 0.6 0.2 - 1.2 MG/DL 08/23/2024 8:34 PM CDT [facility] Comment: THIS ASSAY IS NOT RECOMMENDED FOR PATIENTS UNDERGOING TREATMENT WITH ELTROMBOPAG DUE TO THE POTENTIAL FOR FALSELY ELEVATED RESULTS. TOTAL PROTEIN S/P/B 6.9 6.4 - 8.2 G/DL 08/23/2024 8:34 PM CDT [facility] ALBUMIN S/P/B 3.3(L) 3.4 - 5.0 G/DL 08/23/2024 8:34 PM CDT [facility] AST 19 15 - 37 U/L 08/23/2024 8:34 PM CDT [facility] ALT 23 14 - 55 U/L 08/23/2024 8:34 PM CDT [facility] ALKALINE PHOSPHATASE S/P/B 129 50 - 136 U/L 08/23/2024 8:34 PM CDT [facility] ANION GAP 7.4 5.0 - 15.0 MMOL/L 08/23/2024 8:34 PM CDT [facility] BUN CREATININE RATIO 16.3 6 - 26 08/23/2024 8:34 PM T [facility] A/G RATIO 0.9(L) 1.0 - 2.5 RATIO 08/23/2024 8:34 PM T [facility] GFR ESTIMATE 82(L) >90 ML/MIN/1.7 3 M2 08/23/2024 8:34 PM T [facility] Comment: NOTE: eGFR is not calculated for patients <18 years of age. This is an estimated GFR calculation using the new CKD EPI creatinine equation without race and so does not require a correction factor for race. This estimated GFR should not be used for calculating drug doses. 08/23/2024 8:11 PM CDT us John Stevenson MD LABORATORY Final Resul t [facility] [address] [facility] [place] [address], * (ABNORMAL) CBC W/DIFF AUTOMATED (08/23/2024 8:11 PM CDT) Only the most recent of3 resultswithin the time period is included. WBC 12.07(H) 4.50 - 11.00 x10'3/uL 08/23/2024 8:26 PM CDT [facility] RBC 4.64 4.00 - 5.20 x10'6/uL 08/23/2024 8:26 PM CDT [facility] HGB 13.7 12.0 - 16.0 G/DL 08/23/2024 8:26 PM CDT [facility] HCT 41.2 38.0 - 48.0 % 08/23/2024 8:26 PM CDT [facility] MCV 88.8 80.0 - 100.0 FL 08/23/2024 8:26 PM CDT [facility] MCH 29.5 26.0 - 34.0 PG 08/23/2024 8:26 PM CDT [facility] MCHC 33.3 31.0 - 37.0 G/DL 08/23/2024 8:26 PM CDT [facility] RDW 12.8 11.6 - 14.8 % 08/23/2024 8:26 PM CDT [facility] PLT 242 130 - 400 x10'3/uL 08/23/2024 8:26 PM CDT [facility] MPV 10.4 7.0 - 12.0 FL 08/23/2024 8:26 PM CDT [facility] CBC COMMENT MANUAL DIFFERENTIAL AND RBC/PLT MORPHOLOGY TO FOLLOW. 08/23/2024 8:26 PM CDT [facility] 08/23/2024 8:11 PM CDT us John Stevenson MD LABORATORY Final Resul t [facility] [address] [place] [address], [place] * (ABNORMAL) DRUG SCREEN RAPID (07/28/2024 9:50 AM CDT) Pathologist [facility] AMPHETAMINE (U) POSITIVE(A) NEGATIVE 07/29/19 10:24 AM CDT [facility] BARBITURATES SCREEN (U) NEGATIVE NEGATIVE 07/28/2024 10:24 AM CDT [facility] BENZODIAZEPINES SCREEN (U) NEGATIVE NEGATIVE 07/28/2024 10:24 AM CDT [facility] CANNABINOIDS SCREEN (U) POSITIVE(A) NEGATIVE 07/28/2024 10:24 AM CDT [facility] COCAINE METABOLITES (U) NEGATIVE NEGATIVE 07/28/2024 10:24 AM CDT [facility] METHADONE (U) NEGATIVE NEGATIVE 07/28/2024 10:24 AM CDT [facility] OPIATE SCREEN (U) POSITIVE(A) NEGATIVE 2024 10:24 AM CDT [facility] PHENCYCLIDINE PCP (U) NEGATIVE NEGATIVE 07/28/2024 10:24 AM CDT [facility] Comment: NOTE: RESULTS OF THIS DRUG SCREEN SHOULD BE USED FOR MEDICAL PURPOSES ONLY AND NOT FOR LEGAL OR EMPLOYMENT PURPOSES. POSITIVE RESULTS ARE NOT CONFIRMED. MEDICATIONS CONTAINING EPHEDRINE MAY CAUSE FALSE POSITIVE AMPHETAMINE CALL [phone], LAB, TO REQUEST CONFIRMATION TESTING. IF CREATININE IS <40 mg/dL. RECOLLECTION IS SUGGESTED. AMPHETAMINE- 500 NG/ML BARBITURATE- 200 NG/ML BENZODIAZEPINES- 200 NG/ML THC- 50 NG/ML COCAINE- 150 NG/ML METHADONE- 300 NG/ML OPIATE- 300 MG/ML PCP- 25 NG/ML CREATININE (U) 161.0 28 - 217 MG/DL 07/28/2024 10:24 AM CDT [facility] URINE SPECIMEN / Unknown 07/28/2024 9:50 AM CDT Dalia Lozano DO URINE ORDERABLES Final Resul t [facility] [address] [place] [id number], * PARTIAL THROMBOPLASTIN TIME,PTT (07/28/2024 9:08 AM CDT) PTT 32.6 25.1 - 36.5 SEC 07/28/2024 10:19 AM CDT [facility] 07/28/2024 9:08 AM CDT Jaylyn Byrne MD LABORATORY Final Result Performing Organization Address City/[facility] Co de Phone Number [facility] [address] [place] [id number], [place] [phone] * PROTIME/INR, VENOUS (07/28/2024 9:08 AM CDT) PROTIME 11.2 10.2 - 12.9 SEC 07/28/2024 10:19 AM CDT [facility] INR 1.0 07/28/2024 10:19 AM CDT [facility] Comment: Recommended INR Therapeutic Goals: 2.0-3.0 Routine Therapy 2.5-3.5 Mechanical Prosthetic Valves (High Risk) 07/28/2024 9:08 AM CDT us Jaylyn Byrne MD LABORATORY Final Result [facility] [address] [place] [address], [place] [phone] * (ABNORMAL) BASIC METABOLIC PANEL (07/28/2024 7:09 AM CDT) [facility] [address] [facility] GLUCOSE 102(H) 70 - 99 MG/DL 07/28/2024 8:13 AM CDT [facility] BUN 11 7 - 18 MG/DL 07/28/2024 8:13 AM CDT [facility] CREATININE S/P/B 0.86 0.55 - 1.02 MG/DL 07/28/2024 8:13 AM CDT [facility] SODIUM S/P/B 140 136 - 145 MMOL/L 07/28/2024 8:13 AM CDT [facility] POTASSIUM S/P/B 4.0 3.5 - 5.1 MMOL/L 07/28/2024 8:13 AM CDT [facility] CHLORIDE S/P/B 109 97 - 115 MMOL/L 07/28/2024 8:13 AM CDT [facility] CO2 27.5 21 - 32 MMOL/L 07/28/2024 8:13 AM CDT [facility] CALCIUM S/P/B 8.9 8.5 - 10.1 MG/DL 07/28/2024 8:13 AM CDT [facility] ANION GAP 3.5 2 - 10 MMOL/L 07/28/2024 8:13 AM CDT [facility] BUN CREATININE RATIO 12.8 6 - 26 07/28/2024 8:13 AM T [facility] GFR ESTIMATE 82(L) >90 ML/MIN/1.7 3 M2 07/28/2024 8:13 AM CDT [facility] Comment: NOTE: eGFR is not [...] DO LABORATORY Final Result Performing Organization Address City/[facility]/ZIP Co de Phone Number [facility] [address] [place] [address], [place] [phone] * CARCINOEMBRYONIC ANTIGEN (07/28/2024 7:09 AM CDT) [facility] [address] CEA 2.8 0.0 - 3.0 NG/ML 07/28/2024 11:09 AM CDT [facility] Comment: Test was performed using the Siemens method. Results obtained with other assay methods or kits cannot be used interchangeably with results obtained by the Siemens method. 07/28/2024 7:09 AM CDT Dalia Lozano DO LABORATORY Final Result Performing Organization Address [facility] Co de Phone Number [facility] [address] [place] [address], [place] [phone] * TEST URINE (07/27/2024 7:16 PM CDT) Pathologist [facility] URINE HCG TEST NEGATIVE NEGATIVE 07/27/2024 7:32 PM CDT [facility] Comment: VERY DILUTE URINE SPECIMENS MAY NOT CONTAIN MASTER TAX ADVISOR LEVELS OF HCG. IF IS STILL SUSPECTED, A SERUM HCG TEST IS RECOMMENDED. URINE SPECIMEN FROM URETHRA / Unknown 07/27/2024 7:16 PM CDT Radhames Sales MD URINE ORDERABLES Final Result Performing Organization Address City/[facility] Co de Phone Number [facility] [address] [place] [address], [place] [phone] * (ABNORMAL) Urinalysis, Auto, Complete (07/27/2024 7:16 PM CDT) COLOR (U) YELLOW 07/27/2024 7:35 PM CDT [facility] TRANSPARENCY CLEAR 07/27/2024 7:35 PM CDT [facility] SPECIFIC GRAVITY (U) >1.030(H) 1.000 - 1.030 07/27/2024 7:35 PM CDT [facility] U PH 5.5 5.0 - 9.0 07/27/2024 7:35 PM CDT [facility] LEUKOCYTES (U) NEGATIVE NEGATIVE 07/27/2024 7:35 PM CDT [facility] NITRITES NEGATIVE NEGATIVE 07/27/2024 7:35 PM CDT [facility] PROTEIN RANDOM (U) NEGATIVE NEGATIVE 07/27/2024 7:35 PM CDT [facility] GLUCOSE (U) NEGATIVE NEGATIVE 07/27/2024 7:35 PM CDT [facility] KETONES MG/DL (U) NEGATIVE NEGATIVE 07/27/2024 7:35 PM CDT [facility] BILIRUBIN (U) NEGATIVE NEGATIVE 07/27/2024 7:35 PM CDT [facility] BLOOD (U) TRACE(A) NEGATIVE 07/27/2024 7:35 PM CDT [facility] WBC/HPF NONE SEEN 0 - 5 /HPF 07/27/2024 7:35 PM CDT [facility] RBC/HPF NONE SEEN 0 - 5 /HPF 07/27/2024 7:35 PM CDT [facility] EPI/HPF NONE SEEN /HPF 07/27/2024 7:35 PM CDT [facility] URINE SPECIMEN OBTAINED BY CLEAN CATCH PROCEDURE / Unknown 07/27/2024 7:16 PM CDT us Radhames Sales MD URINE ORDERABLES Final Result Performing Organization Address [facility] de Phone Number [facility] [address] [place] [address], [place] [phone] * LIPASE (07/27/2024 6:15 PM CDT) LIPASE 44 16 - 77 UNITS/L 07/27/2024 7:33 PM CDT [facility] 07/27/2024 6:15 PM CDT us Radhames Sales MD LABORATORY Final Result Performing Organization Address [facility] de Phone Number [facility] [address] [place] [address], [place] [phone] from Last 3 Months Insurance [employer] Direct[employer] * Full Code (Latest Code Status on File) Date Activated Date Inactivated Comments 07/28/2024 1:39 AM 07/28/2024 10:55 PM Care Teams Medicine Tech Relationship Specialty Start Date End Date None, Provider, PCP - General 10/16/21
[2024-10-04 13:34] LABS: Cannabinoid Screen Urine Positive (Negative)
[2024-10-04] MEDS: cefTRIAXone 1 GM in SODIUM CHLORIDE 0.9% IV 50 ML 100 ML IVPB (13:55)
[2024-10-04 14:03] VITALS: BP 116/70; PULSE 70; RESP 16; O2SAT 99
[2024-10-04 15:00] VITALS: BP 123/78; PULSE 70; RESP 16; O2SAT 99
[2024-10-04 15:03] VITALS: BP 123/78; PULSE 70; RESP 16; TEMP 36.8; O2SAT 99
--- NOTE | 2024-10-07 13:02 | PC.NURSE ---
urine culture reviewed, gram neg bacilli . waiting for final
--- NOTE | 2024-10-09 13:40 | PC.NURSE ---
Final urine culture report; Escherichia Coli, Patient discharged on Bactrim DS, culture susceptible, no change in treatment needed per Dr. Rivera.
== END 2024-10-04 15:03 | disposition home or self-care (01) ==
PROVIDERS: Emergency Provider Family Medicine; Referring Provider Family Medicine
DX: N39.0 Urinary tract infection, site not specified (principal); K62.89 Other specified diseases of anus and rectum; K76.9 Liver disease, unspecified
CPT/HCPCS: 36415; 74177; 80053; 80307; 81001; 83690; 85025; 87086; 87186; 96365; 99284; J0696; Q9967

== ENCOUNTER 2024-12-04 16:56 | Emergency (ER) | payer MEDICAID, SELFPAY ==
--- NOTE | ~2024-12-04 | CT_ITS ---
CT abdomen pelvis wo con INDICATION:Onset this AM, pelvic/ vaginal pain . COMPARISON: 10/04/2024 TECHNIQUE: Axial 2.5 mm images of the abdomen were obtained without IV or oral contrast. Diagnostic sensitivity is limited due to lack of IV contrast. FINDINGS: The lung bases are clear. The liver parenchyma is unremarkable. Irregular enhancing mass within the right hepatic lobe measures 4.4 x 4.9 cm this is grossly unchanged prior study. There is a 2.7 x 3.4 cm in mass within the posterior right hepatic lobe. Thyroid mass in the right hepatic lobe measures 4.8 x 4 cm. This findings suggestive of metastatic disease. The gallbladder is unremarkable. The pancreas and spleen are normal in appearance. The adrenal glands are symmetric in size. The kidneys are unremarkable. No intrarenal stones are noted. There is no hydronephrosis. Evaluation of the stomach and bowel loops are limited due to lack of oral contrast. Moderate fecal load suggestive of constipation. The bladder and rectum are normal. IUD is noted in the uterus. No free intraperitoneal fluid or air is evident. There is no significant retroperitoneal lymphadenopathy. The aorta, visceral vessels and renal arteries demonstrate normal caliber. The lower thoracic and lumbar vertebrae are in normal alignment. IMPRESSION: Multiple hepatic masses suggestive of metastatic disease. All CT scans at this facility are performed using low dose modulation techniques as appropriate to perform exam including the following: automated exposure control; use of iterative reconstruction technique; adjustment of the mA and/or kV according to patient size (this includes techniques or standardized protocols for targeted exams where dose is matched to indication/reason for exam). Reviewed, dictated and finalized at location S. IMPRESSION: Multiple hepatic masses suggestive of metastatic disease. All CT scans at this facility are performed using low dose modulation techniqu es as appropriate to perform exam including the following: automated exposure c ontrol; use of iterative reconstruction technique; adjustment of the mA and/or kV according to patient size (this includes techniques or standardized protocol s for targeted exams where dose is matched to indication/reason for exam).
[2024-12-04 16:56] VITALS: BP 143/103; PULSE 81; RESP 18; TEMP 35.4; O2SAT 98
--- NOTE | 2024-12-04 17:19 | ED.FEMALEGU ---
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 She feels manually the IUD in the vaginal vault. She has had this in for 7 years now. No bleeding or vaginal discharge. MD elicited complaint: other (Foreign body vaginal vault sensation) Pertinent past history: IUD (Seven years) Onset (ago): day(s) (3) Location of symptoms: vaginal Severity: moderate Female Urogenital Radiation: Non-Radiating Severity scale (1-10): 3 Quality of pain: cramping Consistency: constant Vaginal discharge: none Vaginal bleeding: none Exacerbating factors: none Relieving factors: none Associated symptoms: denies other symptoms Treatment prior to arrival: none Related Data Home Medications ?Medication ?Instructions ?Recorded ?Confirmed ?Last Taken ?Type No Home Medications 12/04/24 12/04/24 Unknown History Allergies Allergy/AdvReac Type Severity Reaction Status Date / Time Penicillins Allergy Mild Hives Verified 12/04/24 17:31 ampicillin Allergy Hives Verified 12/04/24 17:31 Influenza Virus Vaccines AdvReac Severe bradycardia Verified 12/04/24 17:31 Review of Systems Review of Systems: All systems reviewed & are unremarkable except as noted in HPI and below Constitutional: Constitutional: Reports no additional constitutional complaints Eyes: Eyes: Reports no additional eye complaints ENT: Reports system reviewed and no additional complaints, except as documented Cardiovascular: Cardiovascular: Reports no additional cardiovascular complaints Respiratory: Respiratory: Reports no additional respiratory complaints Gastrointestinal: Gastrointestinal: Reports no additional gastrointestinal complaints Genitourinary: Genitourinary: Reports no additional female genitourinary complaints Musculoskeletal: Musculoskeletal: Reports no additional musculoskeletal complaints Integumentary/Breasts: Skin/Breast: Reports system reviewed and no additional complaints, except as docu Neurologic: Reports system reviewed and no additional complaints, except as documented Psychiatric: Psychiatric: Reports no additional psychiatric complaints Endocrine: Endocrine: Reports no additional endocrine complaints Hematologic/Lymphatic: Hematologic/Lymphatic: Reports no additional hematologic/lymphatic complaints Allergic/Immunologic: Allergic/Immunologic: Reports no additional allergic/immunologic complaints [facility] Past Medical History Medical History delivery delivered Surgical History Surgical History Hx of appendectomy History of tonsillectomy Family History Family History Father Diabetes mellitus Mother Diabetes mellitus Cervical cancer Social History Social History Smoking packs per day: 1 Smoking cigarettes per day: 20.0 Years smoked: 36 Smoking pack-years: 36.00 Smoking status: Current every day smoker Tobacco type: cigarettes Alcohol intake: former Substance use: current Substance use type: marijuana and methamphetamine Do You Feel Safe in your Home?: Yes Lack of Transportation: No Lack of Food: Sometimes True Current Housing: I Have Housing Concerned About Future Housing: No Difficulty Paying Gas/Electric Bills: YES Difficulty Paying for Meds: YES Currently Unemployed: YES Living arrangements: with family Occupation/Education: unemployed Gender identity (if verbalized by the patient): Female Sexual Orientation (if Verbalized by the Patient): Straight or Heterosexual Spiritual care concerns: No Agree to blood products: Yes Exam Const: General: healthy appearing Nutritional Appearance: well nourished Orientation/consciousness: patient oriented x3 HENMT: Head: normal to inspection Ears: external ears normal Face/Nose/Sinus: Normal external nose present Eyes: Conjunctivae: conjunctivae normal Pupils: Equal, round and reactive pupils present EOM: EOMs intact bilaterally Neck: Neck: normal visual inspection Chest: Chest palpation & inspection: normal inspection of the chest Resp: Effort & Inspection: normal respiratory effort and not labored Auscultation: clear to auscultation bilaterally and no crackles Cardio: Rate: regular rate Rhythm: regular rhythm Heart sounds: no murmurs GI: Inspection: non-distended GI Palp: Yes Soft to palpation and No Tenderness to palpation present (GI) Auscultation: normal bowel sounds : General: Yes bladder normal to palpation External Female Exam: normal external appearance Speculum Exam - Vagina: normal appearance of the vagina and normal vaginal discharge Speculum Exam - Cervix: normal appearance of the cervix Other: The string of the IUD is coming through the hole of the os appropriately however there is a tissue like structure connected to the end of the string and hair wrapped around that string as well; attempts were made to remove this tissue however it appears to be connected and intertwined into the IUD. She will need to have a specialist remove this along with the IUD most likely. Female barrel drum cutter Schuyler in the room the entire exam. Skin: General skin exam: normal color Rashes: no rashes Wounds: no wounds Neuro: General: patient oriented x3, moves all extremities and no meningeal signs Extrem: General: normal to inspection, no clubbing, cyanosis or edema and no pedal edema Psych: Appearance: grossly normal and well kempt Mental Status: mental status grossly normal Course Vital Signs Vital signs: Vital Signs Temperature 35.4 C L 12/04/24 16:56 Pulse Rate 81 12/04/24 16:56 Respiratory Rate 18 12/04/24 16:56 Blood Pressure 143/103 H 12/04/24 16:56 Pulse Oximetry 98 12/04/24 16:56 Oxygen Delivery Room Air 12/04/24 16:56 Temperature 35.4 C L 12/04/24 16:56 Pulse Rate 81 12/04/24 16:56 Respiratory Rate 18 12/04/24 16:56 Blood Pressure 143/103 H 12/04/24 16:56 Pulse Oximetry 98 12/04/24 16:56 Oxygen Delivery Room Air 12/04/24 16:56 MDM - Female Genitourinary MDM Narrative Medical decision making narrative: Patient is a 49-year-old female with a vaginal foreign body sensation and an IUD known to the patient. We will start with a CT scan to see placement of IUD. The CT scan of the abdomen and pelvis shows questionable liver cancer with metastatic disease also a thyroid abnormality. I discussed the case with the patient as she is aware of these findings and was told in July to see a metal building assembler to get a colonoscopy and start the workup for metastatic cancer. Patient has yet to do this process peer patient says she does not have insurance and has not been able to get to any specialist at this time. We spent a good 10-15 minutes talking about this CT scan and the need for her to go and get outpatient workup done as soon as possible. She understands that she may have a cancerous process that is spreading at this time. She is AAO x4 and has the decision making capacity ability to understand these findings. She has been waiting since July with the known knowledge of exactly about metastatic cancer process. As for the vaginal foreign body sensation, the examination shows a tissue like structure with hair around the string of the IUD in the vaginal vault. My female barrel drum cutter Schuyler was present during the entire event. Attempts were made to remove the tissue off the IUD but it is stuck onto the string and it hurts every time you try to remove the piece of tissue. Patient understands she needs to see an OBGYN as soon as possible to have this evaluated and removed. There is no signs of infection at this time. More than likely this is internal tissue and not foreign body. That would explain why there is no infection at this time. It has almost a teratoma like change. Imaging Data Attestation: I personally reviewed and interpreted this imaging study as follows: Radiologist's impression: CT scan of the abdomen and pelvis shows FINDINGS: The lung bases are clear. The liver parenchyma is unremarkable. Irregular enhancing mass within the right hepatic lobe measures 4.4 x 4.9 cm this is grossly unchanged prior study. There is a 2.7 x 3.4 cm in mass within the posterior right hepatic lobe. Thyroid mass in the right hepatic lobe measures 4.8 x 4 cm. This findings suggestive of metastatic disease. The gallbladder is unremarkable. The pancreas and spleen are normal in appearance. The adrenal glands are symmetric in size. The kidneys are unremarkable. No intrarenal stones are noted. There is no hydronephrosis. Evaluation of the stomach and bowel loops are limited due to lack of oral contrast. Moderate fecal load suggestive of constipation. The bladder and rectum are normal. IUD is noted in the uterus. No free intraperitoneal fluid or air is evident. There is no significant retroperitoneal lymphadenopathy. The aorta, visceral vessels and renal arteries demonstrate normal caliber. The lower thoracic and lumbar vertebrae are in normal alignment. IMPRESSION: Multiple hepatic masses suggestive of metastatic disease. Discharge Plan Discharge Clinical Impression: Cancer, metastatic to liver Foreign body in vagina Qualifiers: Encounter type: initial encounter Qualified Code(s): T19.2XXA - Foreign body in vulva and vagina, initial encounter Patient Disposition: Home Condition: Stable Instructions: Vaginal Foreign Body (ED) Additional Instructions: 1st, follow-up with a nutrition consultant as soon as possible to have a look at the foreign body/tissue in the vagina causing a sensation connected to the IUD. Second, you need to see a metal building assembler and a cancer specialist as soon as possible as there is liver cancer metastatic possibilities likely that need to be evaluated now and EMELINA. Patient Language: Estonian Prescriptions: No Action No Home Medications Follow-up/Referrals: Elgin Maza, DO [Primary Care Provider, [facility]]
--- NOTE | 2024-12-04 18:08 | PC.NURSE ---
pelvic exam per dr santacruz with this rn in room.
[2024-12-04 18:46] VITALS: BP 123/68; PULSE 78; RESP 20; TEMP 36.3; O2SAT 98
== END 2024-12-04 18:53 | disposition home or self-care (01) ==
PROVIDERS: Emergency Provider Emergency Medicine; PCP Family Medicine
DX: T19.2XXA Foreign body in vulva and vagina, initial encounter (principal); C80.1 Malignant (primary) neoplasm, unspecified; C78.7 Secondary malignant neoplasm of liver and intrahepatic bile duct; F17.210 Nicotine dependence, cigarettes, uncomplicated; Z97.5 Presence of (intrauterine) contraceptive device
CPT/HCPCS: 74176; 99284

== ENCOUNTER 2025-01-21 20:52 | Emergency (ER) | payer OTHER, SELFPAY ==
[2025-01-21 20:54] VITALS: BP 119/85; PULSE 94; RESP 18; TEMP 35.9; O2SAT 98
[2025-01-21 21:15] LABS: Add Urine Microscopic? NO; Appearance Urine Clear (Clear); Glucose Urine UA Negative (Negative); Leukocyte Esterase Ur Negative LEU/UL (Negative); Nitrate Urine Negative (Negative); Specific Grav Ur 1.020 (1.010-1.020)
--- NOTE | 2025-01-21 21:26 | ED_ITS ---
HPI - Female Genitourinary General Chief complaint: Urogenital-Female Stated complaint: urinary prob Time Seen by Provider: 01/21/25 21:09 Source: patient and family Mode of arrival: ambulatory Limitations: no limitations History of Present Illness HPI Narrative: This is a 49-year-old female that presents with urinary frequency dysuria with some suprapubic tenderness with no flank pain no abdominal pain no nausea vomiting no fever chills no diarrhea constipation. MD elicited complaint: dysuria Onset (ago): day(s) Severity: mild Urinary symptoms: Dysuria, Urgency and Frequency Related Data Allergies Allergy/AdvReac Type Severity Reaction Status Date / Time Penicillins Allergy Mild Hives Verified 01/21/25 20:57 ampicillin Allergy Hives Verified 01/21/25 20:57 Influenza Virus Vaccines AdvReac Severe bradycardia Verified 01/21/25 20:57 Review of Systems Review of Systems: All systems reviewed & are unremarkable except as noted in HPI and below PMFSH Past Medical History Medical History delivery delivered Surgical History Surgical History Hx of appendectomy History of tonsillectomy Family History Family History Father Diabetes mellitus Mother Diabetes mellitus Cervical cancer Social History Social History Smoking packs per day: 1 Smoking cigarettes per day: 20.0 Years smoked: 36 Smoking pack-years: 36.00 Smoking status: Current every day smoker Tobacco type: cigarettes Alcohol intake: former Substance use: current Substance use type: marijuana and methamphetamine Lack of Transportation: No Lack of Food: Sometimes True Current Housing: I Have Housing Concerned About Future Housing: No Difficulty Paying Gas/Electric Bills: YES Difficulty Paying for Meds: YES Currently Unemployed: YES Living arrangements: with family Occupation/Education: unemployed Gender identity (if verbalized by the patient): Female Sexual Orientation (if Verbalized by the Patient): Straight or Heterosexual Spiritual care concerns: No Agree to blood products: Yes Exam Const: General: healthy appearing and no acute distress Nutritional Appearance: well nourished Orientation/consciousness: patient oriented x3 Limitations: no limitations Resp: Effort & Inspection: normal respiratory effort Auscultation: clear to auscultation bilaterally Cardio: Rate: regular rate Rhythm: regular rhythm GI: GI Palp: Yes Soft to palpation Other: Suprapubic tenderness with palpation : General: Yes Bladder palpation abnormal Back/Spine/Pelvis: Back: no CVA tenderness Skin: Rashes: no rashes Course Course Emergency Course: Medical decision making narrative: The patient was evaluated by myself in the emergency department. History obtained from patient is an independent historian physical exam performed witnessed by nurse. Patient had a urinalysis which was unremarkable but patient with a current symptoms of urinary frequency hesitancy dysuria and suprapubic discomfort will treat with Macrobid and send medication antibiotics patient's local pharmacy. Repeat assessment: Patient doing well on repeat exam with no acute distress Symptoms stable since arrival to the ED Repeat vitals are stable Patient agrees with discussion after shared medical decision making and agrees with discharge All questions answered to patient's satisfaction Advised patient to take medication as prescribed and follow-up with primary in 3 to 5 days. Vital Signs Vital signs: Vital Signs Temperature 35.9 C L 01/21/25 20:54 Pulse Rate 94 01/21/25 20:54 Respiratory Rate 18 01/21/25 20:54 Blood Pressure 119/85 01/21/25 20:54 Pulse Oximetry 98 01/21/25 20:54 Oxygen Delivery Room Air 01/21/25 20:54 Temperature 35.9 C L 01/21/25 20:54 Pulse Rate 94 01/21/25 20:54 Respiratory Rate 18 01/21/25 20:54 Blood Pressure 119/85 01/21/25 20:54 Pulse Oximetry 98 01/21/25 20:54 Oxygen Delivery Room Air 01/21/25 20:54 MDM Differential Diagnosis Differential Diagnosis: Urinary tract infection Lab Data Labs: Lab Results 01/21/25 Range/Units 21:11 Urine Color Light yellow (Yellow) Urine Appearance Clear (Clear) Urine pH 5.5 (5.0-8.0) Ur Specific [place] 1.020 (1.010-1.020) Urine Protein Negative (Negative) Urine Glucose (UA) Negative (Negative) Urine Ketones Negative (Negative) Ur Blood (Man) Negative (Negative) Urine Nitrate Negative (Negative) Urine Bilirubin Negative (Negative) Urine Urobilinogen 0.2 (0.2-1.0) mg/dL Leukocyte Esterase Rfl Negative (Negative) ALEKSANDR/UL Critical Care Time Critical Care Time Critical Care Time: No Discharge Plan Discharge Clinical Impression: UTI (urinary tract infection) Qualifiers: Urinary tract infection type: acute cystitis Hematuria presence: without hematuria Qualified Code(s): N30.00 - Acute cystitis without hematuria Patient Disposition: Home Condition: Stable Instructions: Antibiotic Form, Urinary Tract Infection in Women (ED) Additional Instructions: Advised patient to take medication as prescribed mer care physician in 3 to 5 days for evaluation and treatment. Patient Language: Croatian Prescriptions: New nitrofurantoin monohyd/m-cryst [Macrobid] 100 mg capsule 100 mg PO Q12H 7 Days Qty: 14 0RF Rx Instructions: must administer with a meal/food No Action hydrocodone-acetaminophen 5-325 mg tablet 1 tablet PO Q8H PRN (Reason: pain) Qty: 60 0RF Follow-up/Referrals: Elgin Maza DO [Primary Care Provider, [facility]] Time of Disposition: 21:32
[2025-01-21] MEDS: NITROFURANTOIN MONOHYD MACROCR 100 MG CAP PO (21:35)
== END 2025-01-21 21:37 | disposition home or self-care (01) ==
PROVIDERS: Emergency Provider Emergency Medicine; PCP Family Medicine
DX: N30.00 Acute cystitis without hematuria (principal); F17.210 Nicotine dependence, cigarettes, uncomplicated
CPT/HCPCS: 81003; 99283; A9270

== ENCOUNTER 2025-01-27 19:45 | Emergency (ER) | payer OTHER, SELFPAY ==
--- NOTE | ~2025-01-27 | CT_ITS ---
EXAMINATION: CT abdomen pelvis w con DATE: 01/27/2025 20:54 INDICATION: Rectal pain. TECHNIQUE: Computed tomography (CT) of the abdomen and pelvis was performed with 100 cc of IV intravenous contrast. Automated exposure control and iterative reconstruction technique were employed. The dose-length product was 434.98 mGy-cm. COMPARISON: CT head without contrast dated 12/04/2024 FINDINGS: Lung bases do not show acute findings. Hiatus hernia in the lower mediastinum. Multiple masses of the liver similar to prior findings with lesion of segment 4 measuring 5.5 cm in diameter. Other lesions of the liver are smaller. Findings suggests metastatic disease to the liver. The gallbladder shows no acute findings. Bile ducts, pancreas and kidneys are unremarkable. No retroperitoneal adenopathy. Significant fecal impaction of the colon with irregular masslike wall thickening of mid rectum similar to prior study suggestive of malignant lesion. No pelvic adenopathy. IMPRESSION: 1. Irregular circumferential wall thickening of the mid rectum suggestive of likely a neoplastic lesion of the rectum. Correlation with endoscopy is recommended. 2. Multiple metastatic lesions of the liver. Dominant lesion of segment 4 of the liver measures 5.5 cm in diameter. Reviewed, dictated and finalized at location T. SPRINKLER INSTALLER IMPRESSION: 1. Irregular circumferential wall thickening of the mid rectum suggestive of li jaja a neoplastic lesion of the rectum. Correlation with endoscopy is recommend ed. 2. Multiple metastatic lesions of the liver. Dominant lesion of segment 4 of th e liver measures 5.5 cm in diameter.
[2025-01-27 19:46] VITALS: BP 165/99; PULSE 81; RESP 16; TEMP 36.7; O2SAT 100
--- NOTE | 2025-01-27 19:59 | ED.ABDPAIN ---
HPI - Abdominal Pain General Chief Complaint: Urogenital-Female Stated Complaint: rectal pressure, unable to urinate Time Seen by Provider: 01/27/25 19:48 Source: patient and family History of Present Illness HPI narrative: 49 YEARS OLD WHITE FEMALE CAME TO THE ED FROM HOME COMPLAINING OF RECTAL PAIN, PRESSURE TYPE FEELING IN THE RECTAL AND VAGINAL AREA SINCE JULY 2024. PATIENT IS TELLING ME THAT SHE HAD CT SCAN TWICE IN THE LAST FEW MONTHS WHICH SHOWED THICKENING OF THE RECTAL WALL AND SPOT ON THE LIVER AND WAS RECOMMENDED TO FOLLOW-UP WITH ELECTRONIC SCALE TESTER FOR COLONOSCOPY. PATIENT IS TELLING ME THAT HER INSURANCE COULD NOT HELP HER TO DO THAT. THE ABOVE COMPLAINT IS INTERMITTENT, GOT WORSE OVER THE LAST FEW DAYS. SHE DENIES ANY FEVER, CHILLS, NAUSEA, VOMITING, DIARRHEA OR CONSTIPATION. PATIENT WAS SEEN RECENTLY IN OUR EMERGENCY ROOM FOR URINARY TRACT INFECTION LIKE SYMPTOMS AND WAS DISCHARGED ON MACROBID. CT ABDOMEN AND PELVIS DECEMBER 04, 2024 SHOWED MULTIPLE HEPATIC MASSES SUGGESTIVE OF METASTATIC DISEASE Related Data Allergies Allergy/AdvReac Type Severity Reaction Status Date / Time Penicillins Allergy Mild Hives Verified 01/27/25 20:54 ampicillin Allergy Hives Verified 01/27/25 20:54 Influenza Virus Vaccines AdvReac Severe bradycardia Verified 01/27/25 20:54 Review of Systems Review of Systems: All systems reviewed & are unremarkable except as noted in HPI and below PMFSH Past Medical History Medical History delivery delivered Surgical History Surgical History Hx of appendectomy History of tonsillectomy Family History Family History Father Diabetes mellitus Mother Diabetes mellitus Cervical cancer Social History Social History Smoking packs per day: 1 Smoking cigarettes per day: 20.0 Years smoked: 36 Smoking pack-years: 36.00 Smoking status: Current every day smoker Tobacco type: cigarettes Alcohol intake: former Substance use: current Substance use type: marijuana and methamphetamine Lack of Transportation: No Lack of Food: Sometimes True Current Housing: I Have Housing Concerned About Future Housing: No Difficulty Paying Gas/Electric Bills: YES Difficulty Paying for Meds: YES Currently Unemployed: YES Living arrangements: with family Occupation/Education: unemployed Gender identity (if verbalized by the patient): Female Sexual Orientation (if Verbalized by the Patient): Straight or Heterosexual Spiritual care concerns: No Agree to blood products: Yes Exam Narrative: GENERAL APPEARANCE: WELL-DEVELOPED, WELL-NOURISHED SKIN: NORMAL COLOR HEAD: NORMOCEPHALIC, NONTRAUMATIC EYES: CLEAR CONJUNCTIVA ENT: OROPHARYNX NORMAL, EARS NORMAL, NOSE NORMAL NECK: SUPPLE, NONTENDER CHEST AND RESPIRATORY: AIRWAY PATENT, NO RESPIRATORY DISTRESS, NO ACCESSORY MUSCLE USE HEART: REGULAR RATE/RHYTHM ABDOMEN: SOFT, NONTENDER, NO ORGANOMEGALY, QUIET BOWEL SOUNDS, RECTAL EXAM SHOWING NO HEMORRHOIDS, NO MASS, SEVERE TENDERNESS VASCULAR: NORMAL PERIPHERAL PULSES, NORMAL CAPILLARY REFILL. MUSCULOSKELETAL: NORMAL RANGE OF MOTION, NONTENDER BACK NEUROLOGIC: ALERT AND ORIENTED ?3, GOVERNMENT EMPLOYEE IS NORMAL TESTED, NO GROSS MOTOR DEFICIT Course Vital Signs Vital signs: Vital Signs Temperature 36.7 C 01/27/25 19:46 Pulse Rate 81 01/27/25 19:46 Respiratory Rate 16 01/27/25 19:46 Blood Pressure 165/99 H 01/27/25 19:46 Pulse Oximetry 100 01/27/25 19:46 Oxygen Delivery Room Air 01/27/25 19:46 Temperature 36.7 C 01/27/25 19:46 Pulse Rate 81 01/27/25 19:46 Respiratory Rate 16 01/27/25 19:46 Blood Pressure 165/99 H 01/27/25 19:46 Pulse Oximetry 100 01/27/25 19:46 Oxygen Delivery Room Air 01/27/25 19:46 [facility] MDM Narrative Medical decision making narrative: PATIENT CAME WITH PRESSURE LIKE FEELING IN THE RECTAL AREA AND VAGINAL AREA INTERMITTENT FOR THE LAST 6 MONTHS VITAL SIGNS: BLOOD PRESSURE 165/99 OTHERWISE WITHIN NORMAL LIMIT PHYSICAL EXAMINATION SHOWING SEVERE TENDERNESS WITH RECTAL EXAM OTHERWISE NO MASS OR HEMORRHOIDS DIFFERENTIAL DIAGNOSIS: ANAL FISSURE, PROCTITIS, MALIGNANCY, ELECTROLYTE IMBALANCE, DEHYDRATION BLOOD WORKUP TODAY INCLUDES CBC, CMP, LIPASE SHOWED no significant abnormalities URINALYSIS SHOWED no evidence of infection CT ABDOMEN PELVIS WITH IV CONTRAST SHOWED finding suggestive of likely a neoplastic lesion of the rectum, multiple metastatic lesions of the liver. In the ED patient received 1 L of normal saline, 0.5 mg of Dilaudid IV, 4 mg for Zofran IV with significant improvement. Diagnosis rectal mass, liver lesions high likely metastasis. Discharged on [place] Follow-up with Dr. No as soon as possible for further evaluation The pt was discharged to home.the pt,s condition upon discharge was fair,education was provided to the pt in reference to the final impression,discharge study results,treatment,prognosis and need for follow up . Differential Diagnosis Differential Diagnosis: ABOVE Lab Data [facility] Lab Attestation statement: I personally reviewed the patient's lab results. 01/27/25 20:12 01/27/25 20:12 Labs: Lab Results 01/27/25 01/27/25 Range/Units 20:07 20:12 WBC 11.9 H (4.8-10.8) K/mm3 RBC 4.65 (4.20-5.40) M/mm3 Hgb 14.0 (12.0-15.0) g/dL Hct 42.5 (35.0-49.0) % MCV 91.4 (78.0-102.0) fL MCH 30.1 (27.0-31.0) pg MCHC 32.9 (32-36) g/dL RDW 12.2 (11.6-14.4) % Plt Count 282 (150-420) K/mm3 MPV 9.7 (9.2-11.8) fl Immature Gran % (Auto) 0.2 H (0.0-0.0) % Neut % (Auto) 49.9 L (50.0-70.0) % Lymph % (Auto) 38.2 (18.0-42.0) % [place] % (Auto) 9.4 (2.0-11.0) % Eos % (Auto) 1.9 (1.0-6.0) % Baso % (Auto) 0.4 (0.0-1.0) % Lymph # (Auto) 4.56 H (1.10-4.50) K/mm3 [place] # (Auto) 1.12 H (0.10-0.90) K/mm3 Eos # (Auto) 0.23 (0.02-0.50) K/mm3 Baso # (Auto) 0.05 (0.00-0.10) K/mm3 Abs Immat Gran (auto) 0.02 H (0.00-0.00) K/mm3 Absolute Neuts (auto) 5.96 (1.70-7.20) K/mm3 Absolute Nucleated RBC 0.00 (0.00-0.00) K/mm3 Nucleated RBC % 0.0 (0-0.0) % Sodium 142 (137-145) mmol/L Potassium 4.0 (3.4-5.0) mmol/L Chloride 106 (98-107) mmol/L Carbon Dioxide 31 H (22-30) mmol/L Anion Gap 5 (4-12) mmol/L BUN 13 (7-17) mg/dL Creatinine 0.87 (0.7-1.0) mg/dL Estim Creat Clear Calc 68 ml/min Estimated GFR > 60 (59 - ) Glucose 105 (65-110) mg/dL Calculated Osmolality 294 (285-295) mOsm/kg Calcium 8.9 (8.4-10.2) mg/dL Total Bilirubin 0.3 (0.2-1.3) mg/dL AST 30 (14-36) U/L ALT 29 (6-35) U/L Alkaline Phosphatase 118 (38-126) U/L Total Protein 7.6 (6.3-8.2) g/dL Albumin 4.5 (3.5-5.1) g/dL Lipase 111 (23-300) U/L Urine Color Yellow (Yellow) Urine Appearance Clear (Clear) Urine pH 7.5 (5.0-8.0) Ur Specific [place] 1.010 (1.010-1.020) Urine Protein Negative (Negative) Urine Glucose (UA) Negative (Negative) Urine Ketones Negative (Negative) Ur Blood (Man) Negative (Negative) Urine Nitrate Negative (Negative) Urine Bilirubin Negative (Negative) Urine Urobilinogen 0.2 (0.2-1.0) mg/dL Leukocyte Esterase Rfl Negative (Negative) ALEKSANDR/UL Imaging Data Radiologist's impression: ITS Impressions Abdomen/Pelvis CT 01/27/25 21:04 IMPRESSION: 1. Irregular circumferential wall thickening of the mid rectum suggestive of likely a neoplastic lesion of the rectum. Correlation with endoscopy is recommended. 2. Multiple metastatic lesions of the liver. Dominant lesion of segment 4 of the liver measures 5.5 cm in diameter. Critical Care Time Critical Care Time Critical Care Time: No Discharge Plan Discharge Clinical Impression: Liver mass, Rectal mass Patient Disposition: Home Condition: Guarded Prognosis Instructions: Pelvic Pain in Women (ED) Additional Instructions: RETURN IF SYMPTOMS ARE WORSENING , CALL DR. NO FOR APPOINTMENT, TAKE MOTRIN NEEDED FOR ACHES AND PAIN, CONTINUE HOME MEDICATIONS. Patient Language: Comoran Prescriptions: New hydrocodone-acetaminophen 5-325 mg tablet 1 tablet PO Q4H Qty: 20 0RF No Action nitrofurantoin monohyd/m-cryst [Macrobid] 100 mg capsule 100 mg PO Q12H 7 Days Qty: 14 0RF Rx Instructions: must administer with a meal/food hydrocodone-acetaminophen 5-325 mg tablet 1 tablet PO Q8H PRN (Reason: pain) Qty: 60 0RF Follow-up/Referrals: Elgin Maza DO [Primary Care Provider, Family Practice] Chetan Levi MD [Physician, Gastroenterology] - 01/28/25
[2025-01-27] MEDS: SODIUM CHLORIDE 0.9% IV 1,000 ML 999 ML IV CONT (20:16)
[2025-01-27 20:21] LABS: Hematocrit 42.5 % (35.0-49.0); Hemoglobin 14.0 g/dL (12.0-15.0); Immature Granulocyte Percent A 0.2 % (0.0-0.0); Lymphocytes Absolute Auto 4.56 K/mm3 (1.10-4.50); Mean Corpuscular HGB Conc 32.9 g/dL (32-36); Mean Corpuscular Hemoglobin 30.1 pg (27.0-31.0); Mean Corpuscular Volume 91.4 fL (78.0-102.0); Nucleated Red Blood Cells Absolute Auto 0.00 K/mm3 (0.00-0.00); Nucleated Red Blood Cells Perc 0.0 % (0-0.0); Platelet Count Result 282 K/mm3 (150-420); Red Blood Count 4.65 M/mm3 (4.20-5.40); White Blood Count 11.9 K/mm3 (4.8-10.8)
[2025-01-27 20:22] LABS: Add Urine Microscopic? NO; Appearance Urine Clear (Clear); Glucose Urine UA Negative (Negative); Leukocyte Esterase Ur Negative LEU/UL (Negative); Nitrate Urine Negative (Negative); Specific Grav Ur 1.010 (1.010-1.020)
[2025-01-27] MEDS: ONDANSETRON INJ 4 MG/2 ML VIAL IV PUSH (20:32)
[2025-01-27] MEDS: HYDROmorphone HCL INJ (*CRX) 2 MG/ML VIAL 0.5 MG IV PUSH (20:32)
[2025-01-27 20:34] LABS: Alanine Aminotransferase 29 U/L (6-35); Albumin Level 4.5 g/dL (3.5-5.1); Alkaline Phosphatase 118 U/L (38-126); Anion Gap 5 mmol/L (4-12); Aspartate Amino Transferase 30 U/L (14-36); Bilirubin,Total 0.3 mg/dL (0.2-1.3); Blood Urea Nitrogen 13 mg/dL (7-17); Calcium 8.9 mg/dL (8.4-10.2); Carbon Dioxide 31 mmol/L (22-30); Chloride 106 mmol/L (98-107); Estimated CRCL calculation 68 ml/min; Estimated Glomerular Filt Rate > 60; Glucose 105 mg/dL (65-110); Lipase 111 U/L (23-300); Osmolality Calculated 294 mOsm/kg (285-295); Potassium 4.0 mmol/L (3.4-5.0); Sodium 142 mmol/L (137-145); Total Protein 7.6 g/dL (6.3-8.2)
--- NOTE | 2025-01-27 20:38 | PC.NURSE ---
PT MEDICATED PER ORDER, SEE MAR. IVF INFUSING. PT TO CT SCAN VIA STRETCHER PER BUSINESS ANALYSIS CONSULTANT.
--- OUTSIDE RECORDS SUMMARY | 2025-01-27 21:25 | XMS_ITS | Clinical Summary ---
Author Organization [facility] Address [address] [place] [id number] Care Team Providers Care Pattern Layout Worker Name Role Phone None, Provider MD Primary Care Provider Unavaila ble Allergies Active Allergy Reactions Criticality Noted Date Comments Influenza Virus Vaccine Other (see comment) High 11/2024 Auto immune response Penicillins Shortness of Breath,Rash High 12/02/2019 Medications No known medications Active Problems Problem Noted Date Diagnosed Date Bowel obstruction 07/28/2024 Rectal abnormality 07/28/2024 S/P laparoscopic appendectomy 12/03/2019 Family History Medical History Relation Comments Alcohol [...] from your doctor or pharmacy? Never 07/28/2024 [facility] Utilities Answer Date Recorded In the past 12 months has e enStage, gas, oil, or water company threatened to shut off services in your [...] or ex-partner? No 07/28/2024 Social Connection and Isolation Panel Answer Date Recorded In a typical week, how many times do you talk on the phone with family, friends, or neighbors? More than three times a week 07/28/2024 How often do you get togethe r with friends or relatives? More than three times a week 07/28/2024 How often do you attend chur ch or restoration services? Never 07/28/2024 Do you belong to any clubs o r organizations such as sabianist groups, unions, fraternal or athletic groups, or [...] medical care, and heating? Somewhat hard 07/28/2024 [facility] Health - Occupational Stress Questionnaire Answer Date [...] time in the past 12 m [facility], were you homeless or living in a correction (including now)? 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 Sex Female 9:43 AM CDT Gender [...] 30 to 64) Every 3 Years 1973 Annual Physical 1976 Hepatitis C 06/07/1991 Hepatitis A Vaccines (1 of 2 - Risk 2-dose series) 1992 Hepatitis B Vaccines (1 of 3 - 19+ 3-dose series) 1992 Pneumococcal Vaccine: 50+ Ye ars (1 of 2 - PCV) 1992 Cervical Cancer Screening Pa p with HPV Testing (Age 30 to 64) Every 5 Years 06/07/2003 Cervical Cancer Screening with HPV 06/07/2003 Mammogram Screening 2013 Lung Cancer Screening 06/07/2023 Zoster Vaccines (1 of 2) 06/07/2023 COVID-19 Vaccine (1 - 2024-2 6 season) 2024 Influenza Adult (#1) 2024 11/22/2009 DTaP, Tdap and Td Vaccines ( 2 - Td or Tdap) 08/04/2033 08/05/2023 Colorectal Cancer Screening Colonoscopy (10 Years) 07/28/2034 07/28/2024 Meningococcal B Vaccine Aged Out No l [...] and discharge planning Lifestyle No Annika Blackmon, [employer] Interventions Community Resource Recommendations Community Resource Services Recommended Domains Addressed Status Status Reason/Outcome Date/Time [facility] Food Pantry Food Insecurity Services Food Insecurity Recommended 09/07/2024 2:45 PM CDT [facility] Financial Assistance Financial Resource Strain Recommended 09/07/2024 2:45 PM CDT [place] [facility] Financial Assistance Financial Resource Strain Recommended 09/07/2024 2:45 PM CDT [facility] Financial Assistance Financial Resource Strain Recommended 09/07/2024 2:45 PM CDT from Last 12 Months Procedures Procedure Name Priority Date/Time Associated Diagnosis Comments COLONOSCOPY Routine 07/28/2024 4:10 PM CDT from Last 3 Months or Most Recently Relevant to Health Maintenance Insurance [employer] Advance Directives * Full Code (Latest Code Status on File) Date Activated Date Inactivated Comments 07/28/2024 1:39 AM 07/28/2024 10:55 PM Care Teams Pattern Layout Worker Relationship Specialty Start Date End Date None, Provider, PCP - General 10/16/21
--- OUTSIDE RECORDS SUMMARY | 2025-01-27 21:25 | XMS_ITS | Clinical Summary ---
Author Organization [facility] Address [address] [place] [address] Care Team Providers Care Assault Amphibious Vehicle Crewman Name Role Phone Nino Braga NP Primary Care Provider [phone] Allergies Active Allergy Reactions Criticality Noted Date Comments Egg Influenza Virus Vaccines Penicillins Hives,Rash Reaction: Hives, Skin Rash, , , Medications levonorgestrel (MIRENA) 20 mcg/24 hr (5 years) IUD Pt to bring to clinic for insertion by physician 1 0 9 Active multivitamin tablet tablet take 1 tablet by ORAL route every day with food 0 0 Active ibuprofen (ADVIL,MOTRIN) 800 mg tablet Take 1 tablet (800 mg total) by mouth every 8 (eight) hours as needed for pain. 90 tablet 2 7 Active omeprazole (PriLOSEC) 20 mg capsule Take 1 capsule (20 mg total) by mouth daily. 30 capsule 1 7 Active LORazepam (ATIVAN) 0.5 mg tablet Take 1 tablet (0.5 mg total) by mouth every 12 (twelve) hours as needed for anxiety. 30 tablet 1 7 Active valACYclovir (VALTREX) 1 gram tablet TAKE 2 TABETLS BY MOUTH NOW AND REPEAT ONE TIME IN 12 HOURS 12 tablet 3 7 Active traZODone (DESYREL) 50 mg tablet Take 1 tablet (50 mg total) by mouth nightly as needed for sleep. 30 tablet 8 Active sertraline (ZOLOFT) 50 mg tablet Take 1 tablet (50 mg total) by mouth daily. 30 tablet 1 8 Active Active Problems Problem Noted Date Diagnosed Date Tobacco dependence syndrome 08/14/2012 Overview (05/24/2016): TOBACCO USE DISORDER Palpitations 02/22/2010 Overview (05/24/2016): Palpitations Encounters Date Type Department Care Team Description 12/17/2024 11:12 AM CDT - 12/17/2024 11:59 PM CDT Hospital Encounter [facility] [address] [place] [id number] Encounter for disability determination Discharge Disposition: Discharge to home or self care from Last 3 Months Immunizations Immunization Administration Dates Next Due Influenza, Split 11/22/2009 Influenza, Unspecified 12/19/2016(Deferr ed: Patient Refused),12/20/2015(Deferred: Patient Refused) Surgical History Surgery Date Site/Laterality Comments TONSILLECTOMY Tonsillectomy SECTION X2 section Medical History Medical History Date Comments Eczema Eczema Hx Other Medical Arrhythmias (fr equent APC's) Hx Other Medical Chronic Anxiety Depression Depression Family History Medical History Relation Name Comments Cervical cancer Mother cervical can cer; Diabetes type II Other 2 Family hist ory of Diabetes -Type II; Other Other 3 No family histo ry of Stroke; Other Other 4 No family histo ry of Coronary artery disease; Cancer Other 5 Family history of Cancer; Diabetes Other 6 Family history of Diabetes mellitus; Relation Name Status Comments Mother Other 1 Alive Other 2 Other 3 Other 4 Other 5 Other 6 Social History Tobacco Use Types Packs/Day Years Used Date Smoking Tobacco: Every Day Cigarettes Smokeless Tobacco: Never Alcohol Use Standard Drinks/Week Comments Yes 0 (1 standard drink = 0.6 oz pur e alcohol) Comments No Sex and Gender Information Value Date Recorded Sex Assigned at Not on file Legal Sex 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 Gender Identity Not on file Sexual Orientation Not on file Last Filed Vital Signs Vital Sign Reading Time Taken Comments Blood Pressure 140/82 04/22/2017 2:41 PM MIXED LIVESTOCK FARM WORKER Pulse 86 04/22/2017 2:41 PM 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 FARM WORKER Temperature 37.1 C (98.7 F) 04/22/2017 2:41 PM MIXED 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 FARM WORKER Respiratory Rate 18 10/11/2016 7:12 AM CDT Oxygen Saturation - - Inhaled Oxygen Concentration - - Weight 100.7 kg (222 lb) 04/22/2017 2:41 PM MIXED LIVESTOCK FARM WORKER Height 172.7 cm (5' 8) 04/22/2017 2:41 PM MIXED LIVESTOCK FARM WORKER Body Mass Index 33.75 04/22/2017 2:41 PM MIXED LIVESTOCK FARM WORKER Plan of Treatment Health Maintenance Due Date Last Done Comments Breast Cancer Screening-Mammogram 1973 Cervical Cancer Screening 1973 Colon Cancer Screening-Colonoscopy 1973 Hepatitis C Screening 1973 Hepatitis B Screening 06/07/1991 Pneumococcal vaccine <65 (1 of 2 - PCV) 1992 Zoster Vaccine (1 of 2) 1992 Regular Well Visit/Exam 18-64 10/11/2017 10/11/2016 Depression Screening 04/22/2018 04/22/2017, 10/12/19 17 Influenza Vaccine (#1) 2024 11/22/2009 DTaP/Tdap/Td Vaccine (2 - Td or Tdap) 08/04/2033 Procedures Procedure Name Priority Date/Time Associated Diagnosis Comments XR SPINE CERVICAL 2 OR 3 VIEWS Schedule Routine, Read Routine (OP Routine) 12/17/2024 11:29 AM CDT Encounter for disability determination XR SHOULDER LEFT 2 OR MORE VIEWS Schedule Routine, Read Routine (OP Routine) 12/17/2024 11:29 AM CDT Encounter for disability determination from Last 3 Months Results * XR Shoulder Left 2 or More Views (12/17/2024 11:29 AM CDT) Anatomical Region Laterality Modality Upper Extremities, Shoulder Left Comp uted Radiography 12/17/2024 11:4 2 AM CDT Impressions 12/17/2024 11:42 AM CDT 1. Mild degenerative changes of the left shoulder without definite evidence acute displaced fracture or dislocation. Electronically signed by: Richard Stewart 12/17/2024 11:42 AM CDT STUDY DESCRIPTION: XR SHOULDER LEFT 2 OR MORE VIEWS ORDERING HEALTHCARE PROVIDER: VICKIE ADLER CLINICAL INDICATIONS: disability determinations. Chronic pain. Limited left shoulder range of motion. COMPARISON: None TECHNIQUE: 4 radiographic views of the left shoulder. FINDINGS: There is no definite evidence acute displaced fracture or dislocation involving left shoulder. There are mild degenerative changes of left glenohumeral joint joint space narrowing and minimal sclerosis. There are mild degenerative changes of the left acromioclavicular joint with joint space narrowing and mild spurring. The visualized soft tissues are grossly unremarkable. Procedure Note Wang England, DO - 12/17/2024 STUDY DESCRIPTION: XR SHOULDER LEFT 2 OR MORE VIEWS ORDERING HEALTHCARE PROVIDER: VICKIE ADLER CLINICAL INDICATIONS: disability determinations. Chronic pain. Limited left shoulder range of motion. COMPARISON: None TECHNIQUE: 4 radiographic views of the left shoulder. FINDINGS: There is no definite evidence acute displaced fracture or dislocation involving left shoulder. There are mild degenerative changes of left glenohumeral joint joint space narrowing and minimal sclerosis. There are mild degenerative changes of the left acromioclavicular joint with joint space narrowing and mild spurring. The visualized soft tissues are grossly unremarkable. IMPRESSION: 1. Mild degenerative changes of the left shoulder without definite evidence acute displaced fracture or dislocation. Electronically signed by: Wang England D.O. Vickie Adler MD IMG XR PROCEDURES Final Result * XR Spine Cervical 2 or 3 Views (12/17/2024 11:29 AM CDT) Anatomical Region Laterality Modality Spine N/A Computed Radiogr aphy 12/17/2024 11:4 3 AM CDT Impressions 12/17/2024 11:43 AM CDT 1. Multilevel cervical spondylosis without definite evidence acute fracture or subluxation. Electronically signed by: Wang England D.O. Narrative 12/17/2024 11:43 AM CDT STUDY DESCRIPTION: XR SPINE CERVICAL 2 OR 3 VIEWS ORDERING HEALTHCARE PROVIDER: VICKIE ADLER CLINICAL INDICATIONS: disability determinations. Chronic pain with limited range of motion of left shoulder. COMPARISON: None TECHNIQUE: 3 radiographic views of the cervical spine. FINDINGS: There is no definite evidence acute fracture or subluxation involving the cervical spine. There is mild reversal of the normal cervical lordotic curvature, which may related to muscle spasms. There is minimal anterolisthesis of C2 on C3. There is minimal retrolisthesis of C3 on C4, C4 on C5, C5 on C6, C6 on C7. There are multilevel degenerative changes cervical spine with disc space narrowing, mild endplate osteophytosis, and uncovertebral arthropathy. The visualized paravertebral soft tissues are grossly unremarkable. Procedure Note Wang England, DO - 12/17/2024 STUDY DESCRIPTION: XR SPINE CERVICAL 2 OR 3 VIEWS ORDERING HEALTHCARE PROVIDER: VICKIE ADLER CLINICAL INDICATIONS: disability determinations. Chronic pain with limited range of motion of left shoulder. COMPARISON: None TECHNIQUE: 3 radiographic views of the cervical spine. FINDINGS: There is no definite evidence acute fracture or subluxation involving the cervical spine. There is mild reversal of the normal cervical lordotic curvature, which may related to muscle spasms. There is minimal anterolisthesis of C2 on C3. There is minimal retrolisthesis of C3 on C4, C4 on C5, C5 on C6, C6 on C7. There are multilevel degenerative changes cervical spine with disc space narrowing, mild endplate osteophytosis, and uncovertebral arthropathy. The visualized paravertebral soft tissues are grossly unremarkable. IMPRESSION: 1. Multilevel cervical spondylosis without definite evidence acute fracture or subluxation. Electronically signed by: Wang Engalnd D.O. Vickie Adler MD IMG XR PROCEDURES Final Result from Last 3 Months Insurance [facility] IDPA IDPA Care Teams Assault Amphibious Vehicle Crewman Relationship Specialty [place] [id number] [address] [place] [address] PCP - General Family Medicine 04/22/17
[2025-01-27 21:56] VITALS: BP 131/71; PULSE 72; RESP 14; TEMP 36.4; O2SAT 94
== END 2025-01-27 22:05 | disposition home or self-care (01) ==
PROVIDERS: Emergency Provider Emergency Medicine; PCP Family Medicine
DX: R16.0 Hepatomegaly, not elsewhere classified (principal); K62.89 Other specified diseases of anus and rectum; F17.210 Nicotine dependence, cigarettes, uncomplicated
CPT/HCPCS: 36415; 74177; 80053; 81003; 83690; 85025; 96361; 96374; 96375; 99284; J1171; J2405; J7030; Q9967

== ENCOUNTER 2025-02-17 01:11 | Day surgery (SDC) | payer OTHER, SELFPAY ==
[2025-02-15 16:01] VITALS: BMI 26.2
[2025-02-17 10:20] VITALS: BP 132/82; PULSE 80; RESP 18; TEMP 36.1; O2SAT 96; BMI 26.0
[2025-02-17 10:45] LABS: BEDSIDEPREGUCG Negative (Negative)
--- NOTE | 2025-02-17 11:10 | SUR.PREOP ---
Patient initially refusing to provide urine drug sample. She states her last use of Meth was Saturday02/12/25. I instructed her that a drug screen was necessary per anesthesia to complete procedure. Requested Dr. Negron see patient at bedside. Dr. Negron at bedside and patient agreeable to provide sample. I then went into patients room to provide her with cup for sample, patient then started crying, gathering belongings and stating her test would be positive and no one here will help me figure out what's growing inside of me. Deescalated situation and patient agreed to provide sample. Patient and family at bedside and audibly upset stating we are lying, cheating..
[2025-02-17 12:13] LABS: Cannabinoid Screen Urine Positive (Negative)
--- NOTE | 2025-02-17 12:19 | SUR.PREOP ---
1210 Ofelia and her family approached the desk asking to go home. I called down to the lab and they could not verify how much longer the run would take. I let Ofelia know that there was nothing I could do about the wait. They decided that they still wanted to leave. Discharge order placed and patient signed paperwork and left. I called Dr Negron and let him know that she had left.
--- NOTE | 2025-02-22 09:01 | PC.NURSE ---
late entry- 02/15/25 Pt pre-op interview done, pt admits to using methamphetamines regularly. She is having trouble narrowing down last time she used but believes it has been at least 24-48 hours and she is instructed to not use any from now through procedure, we discussed the risk of anesthesia with drugs in her system and that anesthesia will probably want to do a drug screen the day of procedure for her safety. She is very upset today discussing drug use, prep for procedure and what her expected diagnosis is. She cried during most of interview. She states she has alot of severe rectal pain during the 20+ times she has a very small bm throughout the day. I did review that her last ct showed a fecal impaction and she denies that she has really had any large BM's since that time. I told her she really needs to do a 2 day prep to insure she is cleaned out for the procedure. I reviewed this with her and she agree's. 02/16/25 I spoke with pt again today and she started her prep on the 02/15/25 as discussed. She has been passing some stool without much difficulty with taking the prep and lactulose as discussed. When asked if she has done any meth. in the past 24-48 hours she denies any use. After discussing this she believes she has not used since Saturday02/12/25.
== END 2025-02-17 12:10 | disposition home or self-care (01) ==
PROVIDERS: Anesthesiology; PCP Family Medicine; Referring Provider Family Medicine; Visit Provider Internal Medicine Gastroenterology
PROC: 0DJD8ZZ Inspection of Lower Intestinal Tract, Via Natural or Artificial Opening Endoscopic (ICD-10-PCS; CPT 45378; principal; 2025-02-17 11:30)
DX: C20 Malignant neoplasm of rectum (principal); F15.90 Other stimulant use, unspecified, uncomplicated; Z53.20 Procedure and treatment not carried out because of patient's decision for unspecified reasons
CPT/HCPCS: 80307; 99211; G0463